=== PATIENT | male | born 1945 | race Caucasian/White ===

== ENCOUNTER 2022-02-16 08:16 | Inpatient (IN) ==
[~2022-02-16 08:16] MED LIST: LR 15ML/HR IV SCH
[2022-02-16] MEDS ORDERED: SODIUM CHLORIDE 0.9% 500 ML IV STA (08:29)
[2022-02-16] MEDS ORDERED: ONDANSETRON INJ 2 MG/ML 2 ML VIAL IV STA (08:29)
[2022-02-16] MEDS ORDERED: KETOROLAC TROMETHAMINE 15 MG/ML VIAL IV STA (08:29)
[2022-02-16] MEDS ORDERED: MoRPHine SULFATE 4 MG/ML 1 ML CARP\\VIAL IV PRN ×2 (08:29→14:46)
[2022-02-16 08:41] LABS: Basophils # (auto) 0.08 K/uL (0-0.2); Basophils % (auto) 0.7 %; Eosinophils # (auto) 0.21 K/uL (0-0.50); Eosinophils % (auto) 1.9 %; Hematocrit (blood only) 42.6 % (40.1-51.0); Immature Granulocytes # (auto) 0.03 K/uL (0.00-0.02); Immature Granulocytes % (auto) 0.3 %; Lymphocytes # (auto) 0.94 K/uL (1.2-3.4); Lymphocytes % (auto) 8.5 %; Mean Corpuscular Hemoglobin 29.6 pg (25.0-34.0); Mean Corpuscular Hgb Conc 32.9 g/dL (32.0-36.0); Mean Corpuscular Volume 90.1 fL (80.0-100.0); Mean Platelet Volume 10.2 fL (9.4-12.4); Monocytes # (auto) 1.23 K/uL (0.24-0.82); Monocytes % (auto) 11.1 %; Neutrophils # (auto) 8.58 K/uL (1.4-6.5); Neutrophils % (auto) 77.5 %; Platelet Count 213 K/uL (130-400); Red Blood Count 4.73 M/uL (4.63-6.08); White Blood Count 11.07 K/ul (4.8-10.8)
--- NOTE | 2022-02-16 08:42 | Emergency Department Note ---
Impression & Plan Acute left flank pain, Hydronephrosis, Renal colic, Failure of outpatient treatment ED Provider Note NAME: JAYCOB MORE AGE: 76 SEX: M : 1945 ARRIVES VIA: Walk-In INFORMANT: [Patient] ED PROVIDER(S): [Tristin Charles MD] CHIEF COMPLAINT: Flank pain HISTORY OF PRESENT ILLNESS: The patient is a 76-year-old male who presents to the ER with 8/10 left flank pain. The pain does not radiate and is constant. No fever, no vomiting. The patient was here yesterday and diagnosed with a 1.7 cm stone in the proximal left ureter. Hydronephrosis was present. He was offered hospitalization but chose to go home. The patient has been using oxycodone as prescribed, it is not controlling his pain. He is here for reevaluation and hopefully urologic intervention. The patient has not noticed any urinary burning or urgency. There has been no frequency. He has not had cough or congestion. He believes this is his first kidney stone. REVIEW OF SYSTEMS: See HPI for pertinent positives and negatives. A total of ten systems were reviewed and were otherwise negative. PMHx/PSHx: See Below SOCIAL HISTORY: See Below. PHYSICAL EXAM: GENERAL: Patient is in no acute distress. HEENT: No acute trauma, normocephalic atraumatic, mucous membranes moist, no nasal congestion, no scleral icterus. NECK: No stridor, no adenopathy, no meningismus, trachea is midline. LUNGS: Clear to auscultation bilaterally, no wheeze, no rhonchi, breath sounds equal. HEART: 2/6 systolic murmur, regular rate and rhythm. ABDOMEN: Soft, nontender, bowel sounds positive, no peritonitis. EXTREMITIES: No cyanosis or edema, full range of motion of all the joints withou t pain or difficulty, no signs for acute trauma. NEUROLOGIC: Oriented x 3, no acute motor or sensory deficits, no focal weakness. SKIN: No rash, no jaundice, no diaphoresis. Back: No flank discomfort to percussion. DIFFERENTIAL DIAGNOSIS: Renal colic, UTI, appendicitis, diverticulitis, mesenteric ischemia, aortic pathology, infections, inflammatory bowel disease, PUD, biliary pathology, as well as other pathologies. EMERGENCY DEPARTMENT COURSE/PROCEDURES: MEDICAL DECISION MAKING: There is a mild leukocytosis, possibly consistent with infection or just his pain. There was a normal hemoglobin and platelet count. Creatinine was elevated at 1.81. No electrolyte abnormality in need of emergent correction. Urinalysis showed some blood, no obvious infection. COVID test returned negative. KUB today did not demonstrate any obvious stone. CT of the abdomen pelvis from yesterday showed a 1.7 cm left proximal ureteral stone with hydronephrosis. The patient presents with ongoing flank discomfort. He has a large stone in his left ureter. He was given IV saline, IV Zofran and IV morphine. He received small dose of IV Toradol. The patient has failed outpatient management. He has a very large stone and will likely require urologic intervention. I did speak with urology. I spoke with case management, the on-call hospitalist was consulted. Past Med/Surg History Medical History Bilateral renal cysts BPH (benign prostatic hyperplasia) GERD (gastroesophageal reflux disease) HLD (hyperlipidemia) HTN (hypertension) Nephrolithiasis Renal insufficiency Subdural hematoma Surgical History (Updated 02/16/22 @ 10:53 by Raymond Sidhu MD) No significant past surgical history Family History Other Family history non-contributory Social History Smoking Status: Never smoker Hx Alcohol Use: Yes Alcohol type: beer Hx Substance Use: No Preferred Language: Belizean Communication Ability: Effective Filenet Architect Required: No Beliefs That Will Affect Care: None Current Living Situation: Spouse Feels Safe at Home: Yes Allergies Allergies Allergy/AdvReac Type Severity Reaction Status Date / Time No Known Drug Allergies Allergy Unknown NONE Verified 10/31/15 10:12 Home Meds Home Medications Medication Instructions Recorded Confirmed Acetaminophen (Tylenol Arthritis 1,300 mg PO PRN Pain #0 caps 10/31/15 Ext Rel) Lisinopril (Zestril) 40 mg PO DAILY #0 tabs 10/31/15 02/16/22 Lovastatin (Mevacor) 20 mg PO DAILY #0 tabs 10/31/15 02/16/22 OMEPRAZOLE (PRILOSEC) 20 mg PO DAILY #0 caps 10/31/15 02/16/22 Previous Rx's Medication Instructions Recorded tamsulosin 0.4 mg capsule 0.4 mg PO DAILY #10 caps 02/15/22 Results & Data (ED) Vital Signs Vital Signs - 24 hr 02/16/22 08:21 02/16/22 08:52 02/16/22 09:00 Temperature 36.5 C Temperature Source Temporal Artery Scan Pulse Rate 84 76 Respiratory Rate 20 21 Respiratory Effort / Characteristics Non-Labored Spontaneous Respiratory Depth Normal Respiratory Pattern Regular Blood Pressure 167/82 H 163/94 H Blood Pressure Mean 110 117 Pulse Oximetry 97 Oxygen Delivery Method Room Air Sepsis Recent Fever Within 48 Hours No Sepsis New/Unexplained Change in Mental Status No Sepsis Action Taken by Nursing No Action Required 02/16/22 09:00 02/16/22 09:30 02/16/22 09:30 Temperature Temperature Source Pulse Rate 75 71 76 Respiratory Rate 19 21 22 Respiratory Effort / Characteristics Respiratory Depth Respiratory Pattern Blood Pressure 172/98 H Blood Pressure Mean 122 Pulse Oximetry 97 Oxygen Delivery Method Sepsis Recent Fever Within 48 Hours Sepsis New/Unexplained Change in Mental Status Sepsis Action Taken by [facility] Medications Current Medication List: was personally reviewed by me Laboratory Data Attestation: I reviewed the patient's lab results. Result diagrams: 02/16/22 08:30 02/16/22 08:30 Lab Results 02/16/22 02/16/22 02/16/22 Range/Units 08:30 08:30 08:30 WBC 11.07 H (4.8-10.8) K/ul RBC 4.73 (4.63-6.08) M/uL Hgb 14.0 (14.0-18.0) g/dl Hct 42.6 (40.1-51.0) % MCV 90.1 (80.0-100.0) fL MCH 29.6 (25.0-34.0) pg MCHC 32.9 (32.0-36.0) g/dL RDW Std Deviation 43.0 (36.4-46.3) fL RDW Coeff of Mela 13.0 (11.5-14.5) % Plt Count 213 (130-400) K/uL MPV 10.2 (9.4-12.4) fL Immature Gran % (Auto) 0.3 % Neut % (Auto) 77.5 % Lymph % (Auto) 8.5 % [place] % (Auto) 11.1 % Eos % (Auto) 1.9 % Baso % (Auto) 0.7 % Neut # (Auto) 8.58 H (1.4-6.5) K/uL Lymph # (Auto) 0.94 L (1.2-3.4) K/uL [place] # (Auto) 1.23 H (0.24-0.82) K/uL Eos # (Auto) 0.21 (0-0.50) K/uL Baso # (Auto) 0.08 (0-0.2) K/uL Immature Gran # (Auto) 0.03 H (0.00-0.02) K/uL Sodium 133 L (136-145) mmol/L Potassium 4.4 (3.5-5.1) mmol/L Chloride 100 (98-107) mmol/L Carbon Dioxide 27 (21-32) mmol/L Anion Gap 6 (3-11) BUN 22 (6-23) mg/dl Creatinine 1.81 H (0.6-1.4) mg/dl Est Cr Clr Drug Dosing 36.7 ml/min Est GFR ( Amer) 41.2 ml/min Est GFR (Non-Af Amer) 35.5 ml/min BUN/Creatinine Ratio 12.2 (10-20) Glucose 137 H (70-99(Fasting)) mg/dl Calcium 9.0 (8.5-10.1) mg/dl Magnesium 1.8 (1.7-2.4) mg/dl SARS-CoV-2, RNA, NAAT (NEGATIVE) 02/16/22 Range/Units 08:50 WBC (4.8-10.8) K/ul RBC (4.63-6.08) M/uL Hgb (14.0-18.0) g/dl Hct (40.1-51.0) % MCV (80.0-100.0) fL MCH (25.0-34.0) pg MCHC (32.0-36.0) g/dL RDW Std Deviation (36.4-46.3) fL RDW Coeff of Mela (11.5-14.5) % Plt Count (130-400) K/uL MPV (9.4-12.4) fL Immature Gran % (Auto) % Neut % (Auto) % Lymph % (Auto) % [place] % (Auto) % Eos % (Auto) % Baso % (Auto) % Neut # (Auto) (1.4-6.5) K/uL Lymph # (Auto) (1.2-3.4) K/uL [place] # (Auto) (0.24-0.82) K/uL Eos # (Auto) (0-0.50) K/uL Baso # (Auto) (0-0.2) K/uL Immature Gran # (Auto) (0.00-0.02) K/uL Sodium (136-145) mmol/L Potassium (3.5-5.1) mmol/L Chloride (98-107) mmol/L Carbon Dioxide (21-32) mmol/L Anion Gap (3-11) BUN (6-23) mg/dl Creatinine (0.6-1.4) mg/dl Est Cr Clr Drug Dosing ml/min Est GFR ( Amer) ml/min Est GFR (Non-Af Amer) ml/min BUN/Creatinine Ratio (10-20) Glucose (70-99(Fasting)) mg/dl Calcium (8.5-10.1) mg/dl Magnesium (1.7-2.4) mg/dl SARS-CoV-2, RNA, NAAT NEGATIVE (NEGATIVE) Administered Medications Folic Acid 1 mg/ Syringe 10 mls @ 5 mls/min IV QAM LIAM Stop: 03/18/22 13:59 Last Admin: 02/16/22 14:18 Dose: 5 mls/min Documented By: Thiamine HCl 100 mg/ Syringe 10 mls @ 2 mls/min IV QAM LAIM Stop: 03/18/22 13:44 Last Admin: 02/16/22 14:17 Dose: 2 mls/min Documented By: Sodium Chloride (Nss 1000ml) 1,000 mls @ 65 mls/hr IV .[id number] LIAM Stop: 02/17/22 21:46 Last Admin: 02/16/22 15:12 Dose: 65 mls/hr Documented By: Discontinued Medications Sodium Chloride (Nss) 500 mls @ 999 mls/hr IV .Q31M STA Stop: 02/16/22 08:59 Last Infusion: 02/16/22 09:14 Dose: 0 mls/hr Documented By: Admin: 02/16/22 08:43 Dose: 999 mls/hr Documented By: HS Cefazolin Sodium (Ancef 2000mg) 2,000 mg in 15 mls @ 3.75 mls/min IV PREOP ONE Stop: 02/16/22 11:03 Last Admin: 02/16/22 11:32 Dose: 3.75 mls/min Documented By: AAF Lactated Ringer's (Lr) 1,000 mls @ 15 mls/hr IV .Q24H LIAM Stop: 02/17/22 05:59 Last Admin: 02/16/22 14:26 Dose: Not Given Documented By: Ketorolac Tromethamine (Ketorolac Tromethamine 15 Mg/Ml Vial) 10 mg IV NOW STA Stop: 02/16/22 08:30 Last Admin: 02/16/22 08:43 Dose: 10 mg Documented By: HS Morphine Sulfate (Morphine Sulfate 4 Mg/Ml 1 Ml Carp\Vial) 4 mg IV Q15M PRN PRN Reason: Pain Stop: 03/02/22 08:28 Last Admin: 02/16/22 08:43 Dose: 4 mg Documented By: HS Ondansetron HCl (Ondansetron Inj 2 Mg/Ml 2 Ml Vial) 4 mg IV NOW STA Stop: 02/16/22 08:30 Last Admin: 02/16/22 08:43 Dose: 4 mg Documented By: Imaging Data Radiologist's Impression: KUB X-Ray 02/16/22 08:29 KUB CLINICAL HISTORY: stone on ct yesterday COMPARISON STUDY: CT of the abdomen and pelvis February 15, 2022. FINDINGS: Right hip arthroplasty is incidentally noted. Bowel gas pattern is normal. Proximal left ureteral calculus on CT of February 15, 2022 is not definitively identified on this exam. IMPRESSION: Proximal left ureteral calculus on CT of February 15, 2022 not definitively identified on this exam. This is likely radiographically occult. ACT 112: Negative or not required by law. Electronically signed by: Tony Reyes M.D. 02/16/2022 9:30 AM Discharge Plan Visit Data Chief Complaint: Flank Pain Stated Complaint: PAIN IN KIDNEY ED Provider: Tristin Charles Discharge Problem: Acute left flank pain, Hydronephrosis, Renal colic, Failure of outpatient treatment Patient Disposition: Admitted As Inpatient Condition: Good Discharge Instructions Interventions: ED Discharge Assessment Last Done: 02/16/22 11:01
[2022-02-16 09:15] LABS: BUN Creatinine Ratio 12.2 (10-20); Creatinine Clr Calc Pharmacy 36.7 ml/min; Est GFR (African American) 41.2 ml/min; Est GFR (Non-African American) 35.5 ml/min
[2022-02-16 09:21] LABS: Potassium 4.4 mmol/L (3.5-5.1)
--- NOTE | 2022-02-16 09:24 | History & Physical Report ---
Date of Service February 16, 2022 Assessment & Plan (1) Hydronephrosis due to obstruction of ureter: (2) Acute left flank pain: (3) HTN (hypertension): (4) HLD (hyperlipidemia): (5) GERD (gastroesophageal reflux disease): (6) BPH (benign prostatic hyperplasia): Plan Mr. Nguyễn is a 76 year old male who presented to the [facility] with left flank pain that has been occurring over the past week. He had been to the ED last evening with similar symptoms where an abdominal and pelvic CT was performed revealing a 1.7 cm obstructing calculus in the left proximal ureter, causing moderate to severe left-sided hydronephrosis. Failed conservative management. Pain management, IVF, Urology consult. Obstructing renal calculus with hydronephrosis: -02/15/22: Abdominal/Pelvic CT: 1.7 cm obstructing calculus in the left proximal ureter with hydronephrosis. -Slight leukocytosis; 11.07. Afebrile. -Pain management with IV Morphine and Ketorolac -IV Fluids, Hgb 14.0 -Conservative management failed, was taking PO Oxycodone; unlikely to pass spontaneously -Urology Consult for possible ESWL/surgical intervention. Discussed with Ashlee PEGUERO -KUB done; Proximal left ureteral calculus on CT of February 15, 2022 not definitively identified on this exam. Alcohol Use: Consumes 4-6 beers daily. Last drink 48 hours ago AWSS scale ordered with IV Vitamin replacement Ativan PRN per protocol Mg+ level pending; goal of 2.0 HTN: -Hypertensive in ED; trend BP. -Hold Lisinopril due to renal insufficiency -Creatinine 1.81 -Hydralazine and Labatolol PRN with hold parameters. HLD: -Stable; Continue Lovastatin post op GERD: -Stable; continue Omeprazole post op BPH: -Stable: Continue Tamsulosin -PSA 0.61 from 2011 -Follows with Urology OPT Disposition: -PCP: Dr. Meade -VTE Prophylaxis: SCDs -Code Status: Full Code -Plan to return home at [place] History of Present Illness Chief Complaint: left flank pain Primary Care Provider: Steve Meade MD Mr. Nguyễn is a 76 year old male who presented to the [facility] with left flank pain that has been occurring over the past week. He had been to the ED last evening with similar symptoms where an abdominal and pelvic CT was performed revealing a 1.7 cm obstructing calculus in the left proximal ureter, causing moderate to severe left-sided hydronephrosis. 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 (She is currently inpatient at [facility], but scheduled for DC today). As mentioned, he has since returned to the ED this AM with similar symptoms. The patient has seen Dr. Garcia with Urology and his last appointment was January 25. He has a history of complex cysts on his left kidney for which they had planned for further follow up and diagnostic testing. He started to develop pain after that appointment. The patient denies LANIER, dizziness, fevers, chills, cough, CP, palpitations, N/V/D, hematuria or dysuria. Per discussion, this is his first kidney stone. Some slight leukocytosis noted this AM 11.07. Patient reports consuming 4-6 beers daily, with his last drink 48 hours ago. Additional PMH includes: HTN, HLD, GERD, and BPH. Patient will be admitted under the Hospitalist service for medical management and Urology consultation for likely surgical intervention. Allergies Allergy/AdvReac Type Severity Reaction Status Date / Time No Known Drug Allergies Allergy Unknown NONE Verified 10/31/15 10:12 Home Medications Medication Instructions Recorded Confirmed Type Acetaminophen (Tylenol Arthritis 1,300 mg PO PRN Pain #0 caps 10/31/15 History Ext Rel) Lisinopril (Zestril) 40 mg PO DAILY #0 tabs 10/31/15 02/16/22 History Lovastatin (Mevacor) 20 mg PO DAILY #0 tabs 10/31/15 02/16/22 History OMEPRAZOLE (PRILOSEC) 20 mg PO DAILY #0 caps 10/31/15 02/16/22 History tamsulosin 0.4 mg capsule 0.4 mg PO DAILY #10 caps 02/15/22 02/16/22 Rx Past Med/Surg History Medical History (Updated 02/16/22 @ 10:53 by Raymond Sidhu MD) Bilateral renal cysts BPH (benign prostatic hyperplasia) GERD (gastroesophageal reflux disease) HLD (hyperlipidemia) HTN (hypertension) Nephrolithiasis Renal insufficiency Subdural hematoma Surgical History (Updated 02/16/22 @ 10:53 by Raymond Sidhu MD) No significant past surgical history Family History Other Family history non-contributory Social History Smoking Status: Never smoker Hx Alcohol Use: Yes Alcohol type: beer Hx Substance Use: No Preferred Language: Italian Communication Ability: Effective Shop Hand Required: No Beliefs That Will Affect Care: None Current Living Situation: Spouse Other Information That Helps Us Care for You: No Feels Safe at Home: Yes Safety Concerns: Feels Safe At This Time Review of Systems Review of Systems: Neuro: (-) Falls, trauma, slurred speech HEENT: (-) LANIER, dizziness, dysphagia, visual or auditory changes CV: (-) CP, palpitations, swelling Resp: (-) SOB GI: (-) appetite changes, N/V/D, bowel changes : (-) urinary changes Skin: (-) rashes Psych: (-) anxiety, depression Physical Exam Physical Exam: Neuro: AAOx4, PERRLA, no aphagia, memory changes, CNII-XII grossly intact HEENT: head normocephalic, moist mucus membranes CV: S1/S2, (+) grade IV/ systolic Murmur sternal border (-) G/R, (-) edema, cap refill < 3 seconds Resp: Lungs CTA in all valdez. On RA GI: Abdomen S/NT/ND, Ax4 bowel sounds, (+) left CVA tenderness Musculoskeletal: 5/5 B/L UE strength, 5/5 B/L LE strength. No gait disturbance Skin: (-) rashes , (-) erythema. Psych: euthymic mood Results & Data Results & Data ([facility]) Vital Signs (Past 12 Hours) Vital Signs Temp Pulse Resp BP Pulse Ox O2 Del Method 02/16/22 08:21 36.5 C 84 20 167/82 H 97 Room Air Laboratory Results Short CBC 02/16/22 Range/Units 08:30 WBC 11.07 H (4.8-10.8) K/ul Hgb 14.0 (14.0-18.0) g/dl Hct 42.6 (40.1-51.0) % Plt Count 213 (130-400) K/uL BMP 02/16/22 08:30 Sodium 133 L Potassium 4.4 Chloride 100 Carbon Dioxide 27 BUN 22 Creatinine 1.81 H Glucose 137 H Calcium 9.0 Diagnostic Findings KUB X-Ray 02/16/22 08:29 KUB CLINICAL HISTORY: stone on ct yesterday COMPARISON STUDY: CT of the abdomen and pelvis February 15, 2022. FINDINGS: Right hip arthroplasty is incidentally noted. Bowel gas pattern is normal. Proximal left ureteral calculus on CT of February 15, 2022 is not definitively identified on this exam. IMPRESSION: Proximal left ureteral calculus on CT of February 15, 2022 not definitively identified on this exam. This is likely radiographically occult. ACT 112: Negative or not required by law. Electronically signed by: Tony Reyes M.D. 02/16/2022 9:30 AM Code Status & VTE Plan Code Status Full Code in the event of Cardiac or respiratory arrest VTE Prophylaxis Plan VTE Prophylaxis will be ordered: Yes Supervising Physician Co-Signing Physician Notes 76 yo M w/ PMH of BPH, GERD, HLD, HTN, CKD IIIa presented 02/16 to the ED due to ongoing left flank pain, 01/17, non radiating, constant. Pt presented 02/15 to ED and was found to have 1.7 cm obstructing left proximal ureter stone w/ mild to mod hydronephrosis and was offered admission which patient declined. Pt's renal function is also elevated at presentation (Cr 1.8, baseline around 1.3-1.4) likely postobstructive. Urinary symptoms: patient denies pain or burning while passing urine. h/o subdural hematoma, 7-8 years ago per pt, likely traumatic per patient but he is not sure. DEVIKA/CKD IIIa: hold nephrotoxics, no NSAIDs, IVF. Lt Renal stone and hydronephrosis: IVF, tamsulosin, Uro onboard, NPO unti uro eval, likely Sx today, d/w uro, pre op cefazolin. Pain Mx mostly w/ opiates and tylenol for now. Other chronic conditions: resume home meds, hold lisinopril. HTN urgency: prn meds for now, likely secondary to pain and acute condition. Pt drinks 4 beers a day almost daily, last drink 2 days ago per patient, awss protocol, iv vitamins, watch out for withdrawal. Pt quit smoking almost 45 years ago. Leucocytosis: minimal, likely d/t acute stress, will get procal --> negative Upon Exam: GENERAL: Alert and oriented x3. NAD, on RA. HEENT: No pallor, no icterus. Pupils equal, round and reactive to light. Oral mucosa moist. NECK: No JVD, no neck masses. HEART: S1 and S2 heard. Regular rate and rhythm. + murmur at aortic and pulmonic area, no gallop. RESPIRATORY SYSTEM: Normal AP diameter. No accessory muscle use. No wheezing, no crackles. ABDOMEN: Soft, bowel sounds present, nontender, no distention. CENTRAL NERVOUS SYSTEM: No facial droop. Speech is clear. Obeys simple commands. Moves extremities. EXTREMITIES: No edema, no erythema seen. NO CVA tenderness I have seen and examined the patient and have discussed the case with the provider above. I agree with the assessment and plan as stated.
--- NOTE | 2022-02-16 09:33 | XRay Report ---
KUB CLINICAL HISTORY: stone on ct yesterday COMPARISON STUDY: CT of the abdomen and pelvis February 15, 2022. FINDINGS: Right hip arthroplasty is incidentally noted. Bowel gas pattern is normal. Proximal left ur eteral calculus on CT of February 15, 2022 is not definitively identified on this exam. IMPRESSION: Proximal left ureteral calculus on CT of February 15, 2022 not definitively identified o n this exam. This is likely radiographically occult. ACT 112: Negative or not required by law. Electronically signed by: Tony Reyes M.D. 02/16/2022 9:30 AM
--- NOTE | 2022-02-16 10:23 | Urology Consultation ---
Date of Consultation February 16, 2022 Assessment & Plan (1) Ureterolithiasis: (2) Hydronephrosis due to obstruction of ureter: (3) Acute left flank pain: Plan 76yo M who returned to the ED today with intractable left flank pain secondary to a 1.7 cm obstructing calculus in the left proximal ureter causing moderate- severe left hydronephrosis. - Afebrile, non-toxic appearing. - Labs reviewed- Mild leukocytosis, creatinine 1.81. - Urinalysis from 02/15 not suspicious for infection. - Discussed acute stone management with cystoscopy and stent placement. Ureteral stents were discussed as well as postoperative issues and pain management. Also discussed that he will need a second procedure for stone treatment in the future. Risks/benefits discussed. Patient is agreeable to proceeding with stent placement today. - Given his intractable left flank pain and DEVIKA in the setting of an obstructing 1.7 cm calculus in the left proximal ureter, will proceed to the OR today for cystoscopy, left ureteral stent placement. - Risks and benefits reviewed with patient by Dr. Dodd. OR notified. Covid negative. Will cover with IV antibiotics preoperatively. - Keep NPO. Continue supportive care and pain management. - Urology will follow. Supervising Physician Co-Signing Physician Notes Agree with above, plan for cystoscopy left ureteral stent placement now History of Present Illness Reason for Consultation: Ureteral stone; Renal colic History of Present Illness This is a 76-year-old male who returned to the ED today with intractable left flank pain. Patient had been to the ED 1 day ago with similar symptoms and diagnosed with a 1.7 cm obstructing left proximal ureteral stone causing moderate to severe left-sided hydronephrosis. He was offered admission yesterday but preferred to go home as he is the primary caregiver for his . He was taking oxycodone as prescribed, however this was not controlling his pain which prompted his return to the ED today. On arrival he was afebrile, BP elevated. Mild leukocytosis of 11.07 (10.95 yesterday), Creatinine 1.81 (1.76 yesterday). KUB today did not definitively identify the stone. Urinalysis from 02/15 with trace LE, 510 WBC, negative bacteria, negative nitrite, negative blood. Patient was admitted to medicine for pain management. Urology consulted for ureteral stone, renal colic. CT abdomen pelvis 02/15- 1. There is a 1.7 cm obstructing calculus in the left proximal ureter. This causes moderate to severe left hydronephrosis. 2. No additional calculi are seen in either kidney. 3. Numerous renal cysts are seen bilaterally. There are 2 mildly complex left renal cysts as above which measure up to 8.5 cm an contain thin calcified septations. These are of low suspicion, likely representing Bosniak 2F lesions. Nonemergent follow-up with urology is recommended, as is a nonemergent contrast- enhanced renal protocol CT or MRI for further evaluation. 4. Advanced colonic diverticulosis without CT evidence of acute diverticulitis. 5. Hepatic steatosis. 6. Cardiomegaly. Patient examined at bedside in the ED. Awake, resting in bed on arrival. No acute distress. Pain has improved with IV pain medication. No fevers or chills. No nausea or vomiting. Voiding without issue. Denies hematuria and dysuria. Has been NPO. Denies prior history of stones. He does follow with Dr. Garcia of [facility] urology and his last appointment was January 25. He has a history of complex cysts on his left kidney for which they had planned for further follow up and diagnostic testing. He reports having a CT scan at [facility] approximately 1 week ago. Family history noncontributory. Allergies Allergy/AdvReac Type Severity Reaction Status Date / Time No Known Drug Allergies Allergy Unknown NONE Verified 10/31/15 10:12 Home Medications Medication Instructions Recorded Confirmed Type Acetaminophen (Tylenol Arthritis 1,300 mg PO PRN Pain #0 caps 10/31/15 History Ext Rel) Lisinopril (Zestril) 40 mg PO DAILY #0 tabs 10/31/15 02/16/22 History Lovastatin (Mevacor) 20 mg PO DAILY #0 tabs 10/31/15 02/16/22 History OMEPRAZOLE (PRILOSEC) 20 mg PO DAILY #0 caps 10/31/15 02/16/22 History tamsulosin 0.4 mg capsule 0.4 mg PO DAILY #10 caps 02/15/22 02/16/22 Rx Patient History Medical History (Updated 02/16/22 @ 10:53 by Raymond Sidhu MD) Bilateral renal cysts BPH (benign prostatic hyperplasia) GERD (gastroesophageal reflux disease) HLD (hyperlipidemia) HTN (hypertension) Nephrolithiasis Renal insufficiency Subdural hematoma Surgical History (Updated 02/16/22 @ 10:53 by Raymond Sidhu MD) No significant past surgical history Family History Other Family history non-contributory Social History Smoking Status: Former smoker Current Living Situation: Spouse Feels Safe at Home: Yes Review of Systems Review of Systems: All systems reviewed & are unremarkable except as noted in HPI & below Physical Exam Constitutional: well developed and well nourished; no acute distress Neck: normal visual inspection Respiratory: normal respiratory effort; no respiratory distress and no labored breathing Gastrointestinal (Abdomen): Inspection/Auscultation: abdomen normal to inspection Percussion/Palpation: abdomen soft; abdomen nontender Musculoskeletal: Head/Neck/Chest: normocephalic Skin: No visible rashes or lesions to exposed skin areas Neurologic: moves all extremities and awake Psychiatric: Orientation: alert, oriented x 3 and cooperative Results & Data (MN) Vital Signs (Past 12 Hours) Vital Signs Temp Pulse Resp BP Pulse Ox O2 Del Method 02/16/22 10:00 72 23 02/16/22 09:30 76 22 172/98 H 97 02/16/22 09:30 71 21 02/16/22 09:00 75 19 02/16/22 09:00 163/94 H 02/16/22 08:52 76 21 02/16/22 08:21 36.5 C 84 20 167/82 H 97 Room Air PG Care Time/CCT Total # of Minutes Spent Total Time Spent with Patient: Total time spent is greater than 50% in coordination of care (as documented) at patient's floor/unit and/or counseling patient: Coding Level of Care Code 40680 Initial Inpt Care Lvl 2 Diagnoses Ureterolithiasis N20.1 Hydronephrosis due to obstruction of ureter N13.1 Acute left flank pain R10.9
[2022-02-16] MEDS ORDERED: fentaNYL citrate 100 MCG/2 ML VIAL ONE (10:34)
[2022-02-16] MEDS ORDERED: PROPOFOL IV EMULSION 10 MG/ML 20 ML VIAL IV ONE (10:34)
[2022-02-16] MEDS ORDERED: ONDANSETRON INJ 2 MG/ML 2 ML VIAL ONE (10:34)
[2022-02-16] MEDS ORDERED: LIDOCAINE 2% MPF LOCAL 5 ML VIAL INFIL ONE (10:34)
[2022-02-16] MEDS ORDERED: hydrALAZINE HCL 20 MG/ML VIAL IV PRN ×2 (10:45→13:22)
--- NOTE | 2022-02-16 10:50 | Anesthesiology Consultation ---
Date of Service February 16, 2022 Assessment & Plan (1) Encounter for pre-operative examination: Chart Review Chart Review: Acceptable Risk for Surgery History Surgery Operation Date: 02/16/22 10:10 Proposed Procedures p Cystoscopy Left Stent Insertion - Jaya Dodd MD Height/Weight Height: 5 ft 7 in Weight: 87.9 kg Allergies Allergy/AdvReac Type Severity Reaction Status Date / Time No Known Drug Allergies Allergy Unknown NONE Verified 10/31/15 10:12 Medications Home Medications Medication Instructions Recorded Confirmed Last Taken Acetaminophen (Tylenol Arthritis 1,300 mg PO PRN Pain #0 caps 10/31/15 Unknown Ext Rel) Lisinopril (Zestril) 40 mg PO DAILY #0 tabs 10/31/15 02/16/22 Unknown Lovastatin (Mevacor) 20 mg PO DAILY #0 tabs 10/31/15 02/16/22 Unknown OMEPRAZOLE (PRILOSEC) 20 mg PO DAILY #0 caps 10/31/15 02/16/22 Unknown tamsulosin 0.4 mg capsule 0.4 mg PO DAILY #10 caps 02/15/22 02/16/22 Unknown Active Medications Generic Name Dose Route Start Last Admin Trade Name Freq PRN Reason Stop Dose Admin Morphine Sulfate 4 mg 02/16/22 08:29 02/16/22 08:43 Morphine Sulfate 4 Mg/Ml 1 Ml Carp\Vial IV 03/02/22 08:28 4 mg Q15M PRN Administration Pain Past Medical History Medical History (Updated 02/16/22 @ 10:53 by Raymond Sidhu MD) Bilateral renal cysts BPH (benign prostatic hyperplasia) GERD (gastroesophageal reflux disease) HLD (hyperlipidemia) HTN (hypertension) Nephrolithiasis Renal insufficiency Subdural hematoma Past Family History Family History Other Family history non-contributory Past Surgical History Surgical History (Updated 02/16/22 @ 10:53 by Raymond Sidhu MD) No significant past surgical history Social History Smoking Status: Former smoker Physical Exam Vital Signs Last Vital Signs Temp 36.5 C 02/16/22 08:21 Pulse 72 02/16/22 10:00 Resp 23 02/16/22 10:00 BP 172/98 H 02/16/22 09:30 Pulse Ox 97 02/16/22 09:30 O2 Del Method 02/16/22 08:21 Testing Laboratory Results 02/16/22 08:30 02/16/22 08:30
[2022-02-16] MEDS ORDERED: ceFAZolin 2000MG 2,000 MG/15 ML SYR IV ONE (11:00)
[2022-02-16 11:18] LABS: Appearance Urine Clear (Clear); Bacteria Urine Automated Negative (Negative); Bilirubin Urine Negative (Negative); Blood Urine Trace (Negative); Cast Urine Automated 0 /lpf (0-5); Color Urine Dark Yellow; Glucose Urine UA Negative (Negative); Ketones Urine 1+ (Negative); Leukocyte Esterase Urine Trace (Negative); Nitrite Urine Negative (Negative); Protein Urine Trace (Negative); Specific Gravity Urine 1.021 (1.000-1.030); Urobilinogen Urine Negative (Negative); pH Urine 5.5 (4.5-7.5)
[2022-02-16] MEDS ORDERED: ATROPINE SULFATE 0.1 MG/ML 10ML SYR IV PRN (11:18)
[2022-02-16] MEDS ORDERED: ONDANSETRON INJ 2 MG/ML 2 ML VIAL IV PRN (11:18)
[2022-02-16] MEDS ORDERED: LABETALOL HCL IV 5 MG/ML 20ML IV PRN (11:18)
[2022-02-16] MEDS ORDERED: Nursing to Pharmacy Communication SCH (11:30)
--- NOTE | 2022-02-16 11:57 | Operative Report ---
PG Post Operative Report Pre & Post Diagnosis Operation Date: 02/16/22 10:10 Pre-Op Diagnosis: Ureterolithiasis Post-Op Diagnosis: Ureterolithiasis I identified the patient and participated in the time-out.: Yes Procedure Operation Date: 02/16/22 10:10 Actual Procedures p Cystoscopy Left Stent Insertion(Left) - Jaya Dodd MD Surgeon Jaya Dodd MD Reel System Operator none Estimated Blood Loss 0 Findings Consistent with Post-Op Diagnosis Specimens none Description of Procedure The patient was identified in the preoperative holding area, appropriate informed consents were reviewed and completed and the patient was transferred to the operative suite. Upon arrival, appropriate antibiotics and anesthesia were administered and the patient was placed in dorsal lithotomy position and prepped and draped in sterile fashion. 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 He does have a moderately enlarged prostate but I was able to advance the scope beyond it. Inspection of the bladder was unremarkable. The left UO was cannulated with a sensor wire and subsequently a 6 Bangl[place]hi by 26 cm double-J stent. There is good curl in the kidney as well as the bladder. There is good drainage through the stent and around it. I concluded the case and he was reversed of anesthesia and taken to the recovery room in stable condition. There were no complications. I attest to the content of the Intraoperative Record and any orders documented therein. Any exceptions are noted below.
--- NOTE | 2022-02-16 12:59 | Fluoroscopy Report ---
INTRAOPERATIVE RADIOGRAPHS CLINICAL HISTORY: Left ureteral stent placement. Fluoroscopy time: 3 seconds. FINDINGS: 3 spot fluoroscopic views of the left upper quadrant are correlated with abdominal CT dated 02/15/2022. On the initial 2 images a wire projects over the left renal pelvis. The final image shows the proximal end of a left ureteral stent in appropriate position. IMPRESSION: Intraoperative images from a left ureteral stent placement procedure as above. Electronically signed by: Tristin Molina M.D. 02/16/2022 12:58 PM
--- NOTE | 2022-02-16 13:16 | Anesthesiology Progress Note ---
Date of Service February 16, 2022 Anesthesia Post Procedure Vital Signs Vital Signs: Temp Pulse Pulse Pulse Resp BP BP 02/16/22 12:55 61 20 125/66 02/16/22 12:40 62 16 117/69 02/16/22 12:25 65 16 135/83 02/16/22 12:15 36.4 C L 63 20 133/75 02/16/22 12:05 69 15 133/80 02/16/22 11:55 36.0 C L 73 12 142/84 H 02/16/22 11:14 36.7 C 69 20 137/84 02/16/22 10:30 187/90 H 02/16/22 10:30 74 25 H 02/16/22 11:01 02/16/22 10:00 72 23 02/16/22 09:30 76 22 172/98 H 02/16/22 09:30 71 21 02/16/22 09:00 75 19 02/16/22 09:00 163/94 H 02/16/22 08:52 76 21 02/16/22 08:21 36.5 C 84 20 167/82 H Pulse Ox O2 Del Method O2 Flow Rate 02/16/22 12:55 96 Nasal Cannula 2 02/16/22 12:40 97 Nasal Cannula 2 02/16/22 12:25 97 Nasal Cannula 2 02/16/22 12:15 97 Nasal Cannula 2 02/16/22 12:05 95 Room Air 02/16/22 11:55 95 Oxymask 5 02/16/22 11:14 93 Room Air 02/16/22 10:30 97 02/16/22 10:30 02/16/22 11:01 Room Air 02/16/22 10:00 02/16/22 09:30 97 02/16/22 09:30 02/16/22 09:00 02/16/22 09:00 02/16/22 08:52 02/16/22 08:21 97 Room Air Pain Intensity Left Flank: Pain Intensity: 3 Transfer of Care Handoff Completed per policy Notes Mental Status: alert / awake / arousable and participated in evaluation Patient Amnestic to Procedure: Yes Nausea / Vomiting: adequately controlled Pain: adequately controlled Airway Patency, RR, SpO2: stable & adequate BP & HR: stable & adequate Hydration State: stable & adequate Anesthetic Complications: no major complications apparent and Pt Satisfied with anesthetic care
[2022-02-16] MEDS ORDERED: LORazepam 1 MG in SYRINGE 0.5 ML IV PRN (13:22)
[2022-02-16] MEDS: THIAMINE HCL 100 MG in SYRINGE 9 ML IV SCH (14:17)
[2022-02-16] MEDS: FOLIC ACID 1 MG in SYRINGE 9.8 ML IV SCH (14:18)
[2022-02-16] MEDS ORDERED: ACETAMINOPHEN 325 MG TAB PO PRN (14:50)
[2022-02-16] MEDS: SODIUM CHLORIDE 0.9% 1000ML 1,000 ML IV SCH (15:12)
--- NOTE | 2022-02-16 17:14 | Electrocardiogram Report ---
Test Reason : Blood Pressure : / mmHG Vent. Rate : 070 BPM Atrial Rate : 070 BPM P-R Int : 186 ms QRS Dur : 134 ms QT Int : 442 ms P-R-T Axes : 025 -59 -28 degrees QTc Int : 477 ms Normal sinus rhythm Right bundle branch block Left anterior fascicular block Bifascicular block Abnormal ECG When compared with ECG of 31-OCT-2015 10:12, Right bundle branch block is now Present Criteria for Septal infarct are no longer Present T wave inversion now evident in Inferolateral leads Confirmed by Eric Nunez ([id number]) on 02/16/2022 5:13:46 PM Referred By: REFERRED SELF Confirmed By:Eric Nunez
[2022-02-17] MEDS: SODIUM CHLORIDE 0.9% 1000ML 1,000 ML IV SCH (06:02)
[2022-02-17 07:31] LABS: Hematocrit (blood only) 36.9 % (40.1-51.0); Hemoglobin 12.1 g/dl (14.0-18.0); Mean Corpuscular Hemoglobin 29.5 pg (25.0-34.0); Mean Corpuscular Hgb Conc 32.8 g/dL (32.0-36.0); Mean Platelet Volume 10.4 fL (9.4-12.4); Platelet Count 223 K/uL (130-400); RDW Coefficient of Variation 12.8 % (11.5-14.5); RDW Standard Deviation 42.5 fL (36.4-46.3)
[2022-02-17] MEDS: THIAMINE HCL 100 MG in SYRINGE 9 ML IV SCH (07:44)
[2022-02-17] MEDS: FOLIC ACID 1 MG in SYRINGE 9.8 ML IV SCH (07:44)
[2022-02-17 07:51] LABS: BUN Creatinine Ratio 13.3 (10-20); Calcium 8.2 mg/dl (8.5-10.1); Creatinine Clr Calc Pharmacy 46.3 ml/min; Est GFR (African American) 54.7 ml/min; Est GFR (Non-African American) 47.2 ml/min; Magnesium 1.7 mg/dl (1.7-2.4)
--- NOTE | 2022-02-17 13:27 | Discharge Summary ---
Date of Service February 17, 2022 Admission HPI Per Admitting Provider Mr. Nguyễn is a 76 year old male who presented to the [facility] with left flank pain that has been occurring over the past week. He had been to the ED last evening with similar symptoms where an abdominal and pelvic CT was performed revealing a 1.7 cm obstructing calculus in the left proximal ureter, causing moderate to severe left-sided hydronephrosis. 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 (She is currently inpatient at [facility], but scheduled for DC today). As mentioned, he has since returned to the ED this AM with similar symptoms. The patient has seen Dr. Garcia with Urology and his last appointment was January 25. He has a history of complex cysts on his left kidney for which they had planned for further follow up and diagnostic testing. He started to develop pain after that appointment. The patient denies LANIER, dizziness, fevers, chills, cough, CP, palpitations, N/V/D, hematuria or dysuria. Per discussion, this is his first kidney stone. Some slight leukocytosis noted this AM 11.07. Patient reports consuming 4-6 beers daily, with his last drink 48 hours ago. Additional PMH includes: HTN, HLD, GERD, and BPH. Patient will be admitted under the Hospitalist service for medical management and Urology consultation for likely surgical intervention. Admission Exam Per Admitting Provider Neuro: AAOx4, PERRLA, no aphagia, memory changes, CNII-XII grossly intact HEENT: head normocephalic, moist mucus membranes CV: S1/S2, (+) grade IV/ systolic Murmur sternal border (-) G/R, (-) edema, cap refill < 3 seconds Resp: Lungs CTA in all valdez. On RA GI: Abdomen S/NT/ND, Ax4 bowel sounds, (+) left CVA tenderness Musculoskeletal: 5/5 B/L UE strength, 5/5 B/L LE strength. No gait disturbance Skin: (-) rashes , (-) erythema. Psych: euthymic mood Principal Diagnosis (1) Ureterolithiasis: (2) Hydronephrosis due to obstruction of ureter: (3) Acute left flank pain: (4) Acute kidney injury Discharge Exam General- No acute distress Head- atraumatic Eyes- PERRL, EOMI, ENT- oropharynx clear Neck- supple, no JVD Lungs- clear to auscultation Heart- regular rhythm; +murmur Abdomen- normal bowel sounds, soft, nontender Extremities- no calf tenderness Neuro- alert, oriented x 3; PERRL, EOMI; no facial palsy; no dysarthria Skin- warm & dry Discharge Data Allergies Allergy/AdvReac Type Severity Reaction Status Date / Time No Known Drug Allergies Allergy Unknown NONE Verified 10/31/15 10:12 Consultations 02/16/22 09:36 ED Decision to Admit Stat Procedures Performed Operation Date: 02/16/22 10:10 Actual Procedures p Cystoscopy Left Stent Insertion(Left) - Jaya Dodd MD Ordered Studies 02/16/22 11:15 FL KUB Routine Laboratory Results WBC 7.80 K/ul (4.8-10.8) 02/17/22 07:08 RBC 4.10 M/uL (4.63-6.08) L 02/17/22 07:08 Hgb 12.1 g/dl (14.0-18.0) L 02/17/22 07:08 Hct 36.9 % (40.1-51.0) L 02/17/22 07:08 MCV 90.0 fL (80.0-100.0) 02/17/22 07:08 MCH 29.5 pg (25.0-34.0) 02/17/22 07:08 MCHC 32.8 g/dL (32.0-36.0) 02/17/22 07:08 RDW Std Deviation 42.5 fL (36.4-46.3) 02/17/22 07:08 RDW Coeff of Mela 12.8 % (11.5-14.5) 02/17/22 07:08 Plt Count 223 K/uL (130-400) 02/17/22 07:08 MPV 10.4 fL (9.4-12.4) 02/17/22 07:08 Immature Gran % (Auto) 0.3 % 02/16/22 08:30 Neut % (Auto) 77.5 % 02/16/22 08:30 Lymph % (Auto) 8.5 % 02/16/22 08:30 [place] % (Auto) 11.1 % 02/16/22 08:30 Eos % (Auto) 1.9 % 02/16/22 08:30 Baso % (Auto) 0.7 % 02/16/22 08:30 Neut # (Auto) 8.58 K/uL (1.4-6.5) H 02/16/22 08:30 Lymph # (Auto) 0.94 K/uL (1.2-3.4) L 02/16/22 08:30 [place] # (Auto) 1.23 K/uL (0.24-0.82) H 02/16/22 08:30 Eos # (Auto) 0.21 K/uL (0-0.50) 02/16/22 08:30 Baso # (Auto) 0.08 K/uL (0-0.2) 02/16/22 08:30 Immature Gran # (Auto) 0.03 K/uL (0.00-0.02) H 02/16/22 08:30 Sodium 136 mmol/L (136-145) 02/17/22 07:08 Potassium 4.0 mmol/L (3.5-5.1) 02/17/22 07:08 Chloride 105 mmol/L (98-107) 02/17/22 07:08 Carbon Dioxide 25 mmol/L (21-32) 02/17/22 07:08 Anion Gap 6 (3-11) 02/17/22 07:08 BUN 19 mg/dl (6-23) 02/17/22 07:08 Creatinine 1.43 mg/dl (0.6-1.4) H D 02/17/22 07:08 Est Cr Clr Drug Dosing 46.3 ml/min 02/17/22 07:08 Est GFR ( Amer) 54.7 ml/min 02/17/22 07:08 Est GFR (Non-Af Amer) 47.2 ml/min 02/17/22 07:08 BUN/Creatinine Ratio 13.3 (10-20) 02/17/22 07:08 Glucose 150 mg/dl (70-99(Fasting)) H 02/17/22 07:08 POC Glucose 83 mg/dl (70-99) 02/17/22 11:47 Calcium 8.2 mg/dl (8.5-10.1) L 02/17/22 07:08 Magnesium 1.7 mg/dl (1.7-2.4) 02/17/22 07:08 Procalcitonin 0.06 ng/ml (0-0.5) 02/16/22 10:22 Urine Color Dark Yellow 02/16/22 Unknown Urine Appearance Clear (Clear) 02/16/22 Unknown Urine pH 5.5 (4.5-7.5) 02/16/22 Unknown Ur Specific [place] 1.021 (1.000-1.030) 02/16/22 Unknown Urine Protein Trace (Negative) H 02/16/22 Unknown Urine Glucose (UA) Negative (Negative) 02/16/22 Unknown Urine Ketones 1+ (Negative) H 02/16/22 Unknown Urine Blood Trace (Negative) H 02/16/22 Unknown Urine Nitrite Negative (Negative) 02/16/22 Unknown Urine Bilirubin Negative (Negative) 02/16/22 Unknown Urine Urobilinogen Negative (Negative) 02/16/22 Unknown Ur Leukocyte Esterase Trace (Negative) H 02/16/22 Unknown Urine WBC (Auto) 1-5 /hpf (0-5) 02/16/22 Unknown Urine RBC (Auto) 5-10 /hpf (0-4) H 02/16/22 Unknown U Hyaline Cast (Auto) 0 /lpf (0-5) 02/16/22 Unknown U Epithel Cells (Auto) 10-20 /lpf (0-5) H 02/16/22 Unknown Urine Bacteria (Auto) Negative (Negative) 02/16/22 Unknown SARS-CoV-2, RNA, NAAT NEGATIVE (NEGATIVE) 02/16/22 08:50 Impressions KUB X-Ray 02/16/22 08:29 KUB CLINICAL HISTORY: stone on ct yesterday COMPARISON STUDY: CT of the abdomen and pelvis February 15, 2022. FINDINGS: Right hip arthroplasty is incidentally noted. Bowel gas pattern is normal. Proximal left ureteral calculus on CT of February 15, 2022 is not definitively identified on this exam. IMPRESSION: Proximal left ureteral calculus on CT of February 15, 2022 not definitively identified on this exam. This is likely radiographically occult. ACT 112: Negative or not required by law. Electronically signed by: Tony Reyes M.D. 02/16/2022 9:30 AM Abdomen Fluoroscopy 02/16/22 11:15 INTRAOPERATIVE RADIOGRAPHS CLINICAL HISTORY: Left ureteral stent placement. Fluoroscopy time: 3 seconds. FINDINGS: 3 spot fluoroscopic views of the left upper quadrant are correlated with abdominal CT dated 02/15/2022. On the initial 2 images a wire projects over the left renal pelvis. The final image shows the proximal end of a left ureteral stent in appropriate position. IMPRESSION: Intraoperative images from a left ureteral stent placement procedure as above. Electronically signed by: Tristin Molina M.D. 02/16/2022 12:58 PM Hospital Course (1) Hydronephrosis due to obstruction of ureter: (2) Acute left flank pain: (3) HTN (hypertension): (4) HLD (hyperlipidemia): (5) GERD (gastroesophageal reflux disease): (6) BPH (benign prostatic hyperplasia): Plan Mr. Nguyễn is a 76 year old male who presented to the [facility] with left flank pain that has been occurring over the past week. He had been to the ED last evening with similar symptoms where an abdominal and pelvic CT was performed revealing a 1.7 cm obstructing calculus in the left proximal ureter, causing moderate to severe left-sided hydronephrosis. Failed conservative management. Obstructing renal calculus with hydronephrosis: -02/15/22: Abdominal/Pelvic CT: 1.7 cm obstructing calculus in the left proximal ureter with hydronephrosis. - Creatinine on admission 1.8 - s/p Cystoscopy Left Stent Insertion(Left) - Jaya Dodd MD - No postop complication - Pain control - Continue Flomax on discharge - ok from urology standpoint to discharge - Follow up with urology Dr. Dodd for stent removal and stone management Alcohol Use: Consumes 4-6 beers daily. Last drink 48 hours ago AWSS scale ordered with IV Vitamin replacement Ativan PRN per protocol Counseling on alcohol cessation HTN: -Hypertensive in ED; trend BP. -Hold Lisinopril due to renal insufficiency -Hydralazine and Labatolol PRN with hold parameters. -Lisinopril resumed on discharge DEVIKA Mostly due to obstructing stone in the left proximal ureter with hydronephrosis. Creatinine 1.8 on admission ( baseline creatinine 1.4 ) Received IVF Creatinine improved to 1.4 today Lisinopril resumed Check BMP in 1 week HLD: -Stable; Continue Lovastatin post op GERD: -Stable; continue Omeprazole post op BPH: -Stable: Continue Tamsulosin -PSA 0.61 from 2012 -Follows with Urology OPT -Code Status: Full Code Disposition: Discharge home today Total Time Total Time Spent Total Time Spent (In Minutes): 35 minutes Discharge Plan Discharge Items Patient Disposition: Home - Self-Care Reason For Visit: FLANK Discharge Diagnosis: (1) Ureterolithiasis: (2) Hydronephrosis due to obstruction of ureter: (3) Acute left flank pain: (4) Acute kidney injury Condition on Discharge: Good Activity: Resume your previous activity Non-emergency contact: Primary Care Provider and Urologist Call non-emergency contact if: you have any medication questions and your temperature is above 101 Follow-up/Referrals: Steve Meade MD [Primary Care Provider] - Diet: Heart Healthy Addtl Attending Provider Instructions: Follow up with your primary care provider Dr. Chavarria within 1 week ( office will call you for the follow up) Follow up with urology Dr. Dodd for stent removal and stone management ( office will call you ) Check BMP in 1 week to monitor your Creatinine Seek medical attention if your reoccurs Pending Studies at Discharge: No Stand-Alone Forms: My [employer], Smoking Cessation Medications and DC Order Prescriptions: New phenazopyridine [Pyridium] 200 mg tablet 200 mg PO Q8H PRN (Reason: for bladder spasm or pain only) Qty: 10 0RF Continued Acetaminophen (Tylenol Arthritis Ext Rel) 650 MG CAPLET 1,300 mg PO PRN (Reason: Pain) Qty: 0 Lisinopril (Zestril) 40 MG tablet 40 mg PO DAILY Qty: 0 Lovastatin (Mevacor) 20 MG tablet 20 mg PO DAILY Qty: 0 OMEPRAZOLE (PRILOSEC) 20 MG CONTR REL CAP 20 mg PO DAILY Qty: 0 tamsulosin 0.4 mg capsule 0.4 mg PO DAILY Qty: 30 0RF Discharge Orders: Discharge Order (Routine); Ordered 02/17/22 Ordered By: Abrahan Cannon Admission Data Admit Date/Time: 02/16/22 09:31 Attending Provider: Abrahan Cannon Admit Provider: Scarlett Guzman Primary Care Provider: Steve Meade Other Providers: Scarlett Guzman Other Interventions: Discharge Summary Assessment (RN) Last Done: 02/17/22 13:29
== END 2022-02-17 13:49 | disposition home or self-care (01) | DRG 661 ==
LOC: ED 08:16 → PACUINP 09:31 → SUATTDRO 09:31 → 2W 11:01

== ENCOUNTER 2023-11-26 22:16 | Inpatient (IN) ==
[2023-11-26] MEDS: SODIUM CHLORIDE 0.9% 500 ML IV SCH (22:50)
--- NOTE | 2023-11-26 22:52 | Emergency Department Note ---
Impression & Plan Rectal bleeding ED Provider Note Provider: Gary Schultz MD DATE OF SERVICE: 11/26/2023 CHIEF COMPLAINT: Bloody and maroon stools HISTORY OF PRESENT ILLNESS: Patient is a 78-year-old gentleman on aspirin and Plavix currently for a TAVR procedure this spring presenting here stating this morning he had bright red blood in his stools several times before 9 AM. States did have a bowel move the rest of the day. No abdominal pain. No fevers. No chest pain or shortness of breath. Reports no rectal pain. Denies significant use of NSAIDs by his report or alcohol. Again no abdominal pain. No syncope. This evening around 8 PM had several more now dark red-maroon stools. States it feels similar to when he had a GI bleed from a gastric ulcer in the past. Did have scopes completed by his report in July without acute finding besides diverticulosis. Patient did require transfusion with a gastric bleed about 20 years ago. PAST MEDICAL HISTORY: As noted above MEDICATIONS: Reviewed home medications includes aspirin and Plavix as well as pantoprazole SOCIAL HISTORY: Denies alcohol use PHYSICAL EXAM: GENERAL: alert and oriented in no acute distress on stretcher Head: normocephalic and atraumatic EYES: No injection, discharge or icterus. NECK: Trachea midline. ENT: Mucous membranes pink and moist. LUNGS: Airway patent. No retractions. Breath sounds clear with good air entry bilaterally. HEART: Regular rate and rhythm. No chest wall tenderness ABDOMEN: Soft and non-tender, without guarding or rebound. No masses. SKIN: Acyanotic, warm, dry, without rashes EXTREMITIES: Without swelling, tenderness or deformity NEUROLOGICAL: No focal deficits. No aphasia. No facial droop or slurred speech. Ambulatory. 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 No PVC. No clear acute ST segment elevation with nonspecific anterior T wave inversions. QTc 483. CONTINUOUS CARDIAC MONITORING: was ordered and showed a heart rate of 70s-80s bpm in normal sinus rhythm Patient's laboratory studies and imaging reviewed. Differential includes Diverticulosis, AVM, coagulopathy, colitis, inflammatory bowel disease, malignancy, Serenity-Mai tear, esophagitis, peptic ulcer disease, variceal bleed, gastritis, epistaxis, fissure, hemorrhoids, as well as other pathologies. IMPRESSION/MEDICAL DECISION MAKING: Patient history of GI bleed in the past and gastric ulcer by report chronic transfusion. Appears hemodynamically stable currently. Is on aspirin Plavix did have a TAVR several months ago. No chest pain syncope shortness of breath or significant fever to report at this time. No significant abdominal pain or abdominal tenderness. Does report some blood this morning and then maroon blood multiple stools this evening. Basic blood counts ordered. Will obtain CT of the abdomen pelvis to look for any inflammatory conditions diverticulitis. Given an IV dose of pantoprazole here. Type and screen sent. Blood work here without significant leukocytosis. Normal platelet count. Hemoglobin 13.2. BUN not significantly elevated. No transaminitis. Seems likely to be more of a lower GI issue given the BUNs not elevated. Did have a large bloody bowel movement while here. Given his age and risk factors with the dual antiplatelets, do recommend we observe him for stability and further GI evaluation. He was in agreement. Hospitalist contacted. CT without evidence of diverticulitis free air or abscess. CT report shows some limited sigmoid colitis but no infectious symptoms we will defer antibiotics unless the hospitalist feel they are warranted. DIAGNOSIS: Rectal bleed DISPOSITION: Hospitalist will evaluate Patient was agreeable with this plan. Past Med/Surg History Problem List Rectal bleeding (Acute) Encounter for pre-operative examination Hypertension (Chronic) Dizziness (Acute) Right sided weakness (Acute) Subdural hematoma (Acute) No significant past surgical history Medical History Bilateral renal cysts BPH (benign prostatic hyperplasia) GERD (gastroesophageal reflux disease) History of bleeding ulcers 15 yrs ago History of kidney stones HLD (hyperlipidemia) HTN (hypertension) Nephrolithiasis Renal insufficiency Subdural hematoma 2016 > unknown cause, [facility] [place], drained, no further issues Surgical History History of colonoscopy History of cystoscopy with stent History of esophagogastroduodenoscopy (EGD) History of tonsillectomy History of total hip arthroplasty right History of total knee replacement bilat Hx of removal of cyst "from brain" benign, removed approx 2 yrs ago Family History Mother Diabetes Brother Diabetes Social History Smoking Status: Never smoker Second Hand Exposure: No; Do You Dip or Chew Tobacco: No; Hx Alcohol Use: Yes Alcohol type: beer Hx Substance Use: No Preferred Language: Citizen Of [place] Communication Ability: Effective [employer] Instructor Required: No Beliefs That Will Affect Care: None Current Living Situation: Alone Feels Safe at Home: Yes Assistive Devices: Glasses Allergies Allergies Allergy/AdvReac Type Severity Reaction Status Date / Time No Known Allergies Allergy Verified 11/26/23 22:46 Home Meds Home Medications Medication Instructions Recorded Confirmed lisinopril 40 mg tablet 40 mg PO QAM 03/05/22 11/26/23 lovastatin 20 mg tablet,extended 20 mg PO QAM 03/05/22 11/26/23 release 24 hr aspirin 81 mg tablet,delayed 81 mg PO DAILY 11/26/23 11/26/23 release clopidogrel 75 mg tablet 75 mg PO QAM 11/26/23 11/26/23 multivitamin 1 tab PO DAILY 11/26/23 11/26/23 omega-3 fatty acids 1,000 mg 1,000 mg PO DAILY 11/26/23 11/26/23 capsule pantoprazole 40 mg tablet,delayed 40 mg PO QAM 11/26/23 11/26/23 release sucralfate 1 gram tablet 1 g PO QID PRN 11/26/23 11/26/23 HEARTBURN/INDIGESTION Results & Data (ED) Vital Signs Vital Signs - 24 hr 11/26/23 22:19 11/26/23 22:30 11/26/23 22:30 Temperature 36.8 C Temperature Source Temporal Artery Scan Pulse Rate 83 88 Pulse Rate from SpO2 Sensor Respiratory Rate 18 18 Respiratory Effort / Characteristics Non-Labored Spontaneous Respiratory Depth Normal Respiratory Pattern Regular Blood Pressure 196/103 H 161/86 H Blood Pressure Mean 134 103 Blood Pressure Position Sitting Pulse Oximetry 96 Oxygen Delivery Method Room Air Sepsis Recent Fever Within 48 Hours No Sepsis New/Unexplained Change in Mental Status N/A Sepsis Action Taken by Nursing No Action Required 11/26/23 22:31 11/26/23 22:39 11/26/23 23:06 Temperature Temperature Source Pulse Rate 78 73 Pulse Rate from SpO2 Sensor Respiratory Rate 23 Respiratory Effort / Characteristics Respiratory Depth Respiratory Pattern Blood Pressure Blood Pressure Mean Blood Pressure Position Pulse Oximetry 97 Oxygen Delivery Method Room Air Sepsis Recent Fever Within 48 Hours Sepsis New/Unexplained Change in Mental Status Sepsis Action Taken by Nursing 11/26/23 23:09 11/26/23 23:34 11/26/23 23:36 Temperature Temperature Source Pulse Rate 76 72 Pulse Rate from SpO2 Sensor 72 Respiratory Rate 21 23 Respiratory Effort / Characteristics Respiratory Depth Respiratory Pattern Blood Pressure 159/83 H Blood Pressure Mean 126 Blood Pressure Position Pulse Oximetry 96 Oxygen Delivery Method Sepsis Recent Fever Within 48 Hours Sepsis New/Unexplained Change in Mental Status Sepsis Action Taken by Nursing 11/26/23 23:42 11/26/23 23:50 Temperature Temperature Source Pulse Rate 70 71 Pulse Rate from SpO2 Sensor 70 71 Respiratory Rate 19 21 Respiratory Effort / Characteristics Respiratory Depth Respiratory Pattern Blood Pressure Blood Pressure Mean Blood Pressure Position Pulse Oximetry 96 95 Oxygen Delivery Method Sepsis Recent Fever Within 48 Hours Sepsis New/Unexplained Change in Mental Status Sepsis Action Taken by Nursing Laboratory Data 11/27/23 01:08 11/26/23 22:35 Lab Results 11/26/23 11/26/23 11/26/23 Range/Units 22:35 22:47 23:06 WBC 7.84 (4.8-10.8) K/ul RBC 4.54 L (4.70-6.10) M/uL Hgb 13.2 L (14.0-18.0) g/dl POC Hgb 12.9 L (14.0-18.0) g/dl Hct 39.8 L (42.0-52.0) % POC Hct 38 L (42-52) % MCV 87.7 (80.0-100.0) fL MCH 29.1 (25.0-34.0) pg MCHC 33.2 (32.0-36.0) g/dL RDW Std Deviation 46.4 H (36.4-46.3) fL RDW Coeff of Mela 14.5 (11.5-14.5) % Plt Count 174 (130-400) K/uL MPV 11.3 (9.4-12.4) fL Immature Gran % (Auto) 0.3 % Neut % (Auto) 64.0 % Lymph % (Auto) 20.8 % Pope % (Auto) 11.6 % Eos % (Auto) 2.7 % Baso % (Auto) 0.6 % Neut # (Auto) 5.02 (1.40-6.50) K/uL Lymph # (Auto) 1.63 (1.20-3.40) K/uL [place] # (Auto) 0.91 H (0.11-0.59) K/uL Eos # (Auto) 0.21 (0.00-0.50) K/uL Baso # (Auto) 0.05 (0.00-0.20) K/uL Immature Gran # (Auto) 0.02 (0.01-0.20) K/uL PT 11.3 (9.0-12.0) Seconds INR 1.0 (0.9-1.1) APTT 29 (21-31) Seconds PTT Ratio 1.1 POC Sodium 138 (135-144) mmol/L Sodium 137 (136-145) mmol/L POC Potassium 3.6 (3.3-5.0) mmol/L Potassium 3.5 (3.5-5.1) mmol/L POC Chloride 104 (101-112) mmol/L Chloride 105 (98-107) mmol/L Carbon Dioxide 22 (21-32) mmol/L POC Total CO2 22 L (24-31) mmol/L Anion Gap 10 (3-11) POC Anion Gap 17.0 (16-25) mmol/L POC BUN 19 H (7-18) mg/dl BUN 22 (6-23) mg/dl Creatinine 1.25 (0.6-1.4) mg/dl POC Creatinine 1.4 H (0.6-1.3) mg/dl Est Cr Clr Drug Dosing 49.5 ml/min Est GFR ( Amer) 63.5 ml/min Est GFR (Non-Af Amer) 54.8 ml/min BUN/Creatinine Ratio 17.6 (10-20) Glucose 110 H (70-99(Fasting)) mg/dl POC Glucose (other) 108 H (70-99) mg/dl Calcium 9.0 (8.6-10.3) mg/dl POC Ioniz Calcium Eligio 1.14 (1.12-1.32) mmol/l Magnesium 1.6 L (1.7-2.4) mg/dl Total Bilirubin 0.7 (0.2-1.0) mg/dl AST 18 (13-39) U/L ALT 12 (7-52) U/L Alkaline Phosphatase 44 (34-104) U/L Troponin I High Sens 7.1 (0-20) pg/ml Total Protein 6.8 (6.0-8.3) gm/dl Albumin 4.1 (3.4-5.0) gm/dl Globulin 2.7 (2.5-4.0) gm/dl Albumin/Globulin Ratio 1.5 (0.9-2) POC Stool Occult Blood (Negative) Blood Type B Positive Antibody Screen NEGATIVE 11/26/23 11/27/23 Range/Units 23:19 01:08 WBC (4.8-10.8) K/ul RBC (4.70-6.10) M/uL Hgb 11.6 L (14.0-18.0) g/dl POC Hgb (14.0-18.0) g/dl Hct 35.8 L (42.0-52.0) % POC Hct (42-52) % MCV (80.0-100.0) fL MCH (25.0-34.0) pg MCHC (32.0-36.0) g/dL RDW Std Deviation (36.4-46.3) fL RDW Coeff of Mela (11.5-14.5) % Plt Count (130-400) K/uL MPV (9.4-12.4) fL Immature Gran % (Auto) % Neut % (Auto) % Lymph % (Auto) % Pope % (Auto) % Eos % (Auto) % Baso % (Auto) % Neut # (Auto) (1.40-6.50) K/uL Lymph # (Auto) (1.20-3.40) K/uL [place] # (Auto) (0.11-0.59) K/uL Eos # (Auto) (0.00-0.50) K/uL Baso # (Auto) (0.00-0.20) K/uL Immature Gran # (Auto) (0.01-0.20) K/uL PT (9.0-12.0) Seconds INR (0.9-1.1) APTT (21-31) Seconds PTT Ratio POC Sodium (135-144) mmol/L Sodium (136-145) mmol/L POC Potassium (3.3-5.0) mmol/L Potassium (3.5-5.1) mmol/L POC Chloride (101-112) mmol/L Chloride (98-107) mmol/L Carbon Dioxide (21-32) mmol/L POC Total CO2 (24-31) mmol/L Anion Gap (3-11) POC Anion Gap (16-25) mmol/L POC BUN (7-18) mg/dl BUN (6-23) mg/dl Creatinine (0.6-1.4) mg/dl POC Creatinine (0.6-1.3) mg/dl Est Cr Clr Drug Dosing ml/min Est GFR ( Amer) ml/min Est GFR (Non-Af Amer) ml/min BUN/Creatinine Ratio (10-20) Glucose (70-99(Fasting)) mg/dl POC Glucose (other) (70-99) mg/dl Calcium (8.6-10.3) mg/dl POC Ioniz Calcium Eligio (1.12-1.32) mmol/l Magnesium (1.7-2.4) mg/dl Total Bilirubin (0.2-1.0) mg/dl AST (13-39) U/L ALT (7-52) U/L Alkaline Phosphatase (34-104) U/L Troponin I High Sens (0-20) pg/ml Total Protein (6.0-8.3) gm/dl Albumin (3.4-5.0) gm/dl Globulin (2.5-4.0) gm/dl Albumin/Globulin Ratio (0.9-2) POC Stool Occult Blood Positive A (Negative) Blood Type Antibody Screen Administered Medications Potassium Chloride/Sodium Chloride (Normal Saline W/20 Meq Kcl) 20 meq in 1,000 mls @ 60 mls/hr IV .[id number] ONE; Protocol Stop: 11/27/23 17:15 Last Admin: 11/27/23 01:05 Dose: 60 mls/hr Documented By: MEGHAN Discontinued Medications Sodium Chloride (Nss) 500 mls @ 999 mls/hr IV .[id number] LIAM Stop: 11/26/23 23:00 Last Infusion: 11/26/23 23:48 Dose: Infused Documented By: Admin: 11/26/23 22:50 Dose: 999 mls/hr Documented By: STANLEY Pantoprazole Sodium 80 mg/ (Dextrose) 120 mls @ 480 mls/hr IV ONE STA Stop: 11/26/23 22:43 Last Infusion: 11/26/23 23:48 Dose: Infused Documented By: Admin: 11/26/23 23:32 Dose: 480 mls/hr Documented By: MEGHAN Thiamine HCl 100 mg/ Syringe 10 mls @ 2 mls/min IV NOW STA Stop: 11/27/23 00:51 Last Admin: 11/27/23 01:05 Dose: 2 mls/min Documented By: MEGHAN Ioversol (Optiray 320 100ml) 100 ml IV ONCE ONE Stop: 11/26/23 23:29 Last Admin: 11/26/23 23:28 Dose: 93 ml Documented By: TORY Discharge Plan Visit Data Chief Complaint: Rectal Bleed Stated Complaint: RECTAL BLEED ED Provider: Gary Schultz Discharge Problem: Rectal bleeding Patient Disposition: Being Evaluated by Hospitalist Forms Stand Alone Forms: My [facility] Prescriptions Prescriptions: No Action lisinopril 40 mg Tablet 40 mg PO QAM lovastatin 20 mg Tablet Extended Release 24 Hr 20 mg PO QAM multivitamin Tablet 1 tab PO DAILY omega-3 fatty acids 1,000 mg Capsule 1,000 mg PO DAILY sucralfate 1 gram tablet 1 g PO QID PRN (Reason: HEARTBURN/INDIGESTION) clopidogrel 75 mg tablet 75 mg PO QAM aspirin 81 mg Tablet,Delayed Release (Dr/Ec) 81 mg PO DAILY Rx Instructions: PER PT "DID NOT TAKE TODAY, 11/26/23, SINCE BLEEDING". pantoprazole 40 mg tablet,delayed release (DR/EC) 40 mg PO QAM Referrals Referrals: Steve Meade MD [Primary Care Provider] -
[2023-11-26 22:56] LABS: Basophils # (auto) 0.05 K/uL (0.00-0.20); Basophils % (auto) 0.6 %; Eosinophils # (auto) 0.21 K/uL (0.00-0.50); Eosinophils % (auto) 2.7 %; Hematocrit (blood only) 39.8 % (42.0-52.0); Hemoglobin 13.2 g/dl (14.0-18.0); Immature Granulocytes # (auto) 0.02 K/uL (0.01-0.20); Immature Granulocytes % (auto) 0.3 %; Lymphocytes # (auto) 1.63 K/uL (1.20-3.40); Lymphocytes % (auto) 20.8 %; Mean Corpuscular Hemoglobin 29.1 pg (25.0-34.0); Mean Corpuscular Hgb Conc 33.2 g/dL (32.0-36.0); Mean Corpuscular Volume 87.7 fL (80.0-100.0); Mean Platelet Volume 11.3 fL (9.4-12.4); Monocytes # (auto) 0.91 K/uL (0.11-0.59); Monocytes % (auto) 11.6 %; Neutrophils # (auto) 5.02 K/uL (1.40-6.50); Platelet Count 174 K/uL (130-400); RDW Coefficient of Variation 14.5 % (11.5-14.5); RDW Standard Deviation 46.4 fL (36.4-46.3); Red Blood Count 4.54 M/uL (4.70-6.10); White Blood Count 7.84 K/ul (4.8-10.8)
[2023-11-26 23:00] LABS: iSTAT Creatinine 1.4 mg/dl (0.6-1.3); iSTAT Hemoglobin 12.9 g/dl (14.0-18.0); iSTAT Ionized Calcium 1.14 mmol/l (1.12-1.32); iSTAT Potassium 3.6 mmol/L (3.3-5.0)
[2023-11-26 23:15] LABS: Albumin Globulin Ratio 1.5 (0.9-2); Albumin Level 4.1 gm/dl (3.4-5.0); BUN Creatinine Ratio 17.6 (10-20); Bilirubin,Total 0.7 mg/dl (0.2-1.0); Creatinine Clr Calc Pharmacy 49.5 ml/min; Est GFR (African American) 63.5 ml/min; Est GFR (Non-African American) 54.8 ml/min; Globulin 2.7 gm/dl (2.5-4.0); Potassium 3.5 mmol/L (3.5-5.1); Total Protein 6.8 gm/dl (6.0-8.3)
[2023-11-26 23:22] LABS: Troponin I High Sensitivity 7.1 pg/ml (0-20)
[2023-11-26] MEDS: OPTIRAY 320 100ml IV ONE (23:28)
[2023-11-26 23:32] LABS: Partial Thromboplastin Ratio 1.1; Partial Thromboplastin Time 29 Seconds (21-31); Prothrombin Time 11.3 Seconds (9.0-12.0)
[2023-11-26] MEDS: PANTOprazole 80 MG in DEXTROSE 5% 100 ML IV STA (23:32)
[2023-11-27 00:27] LABS: Magnesium 1.6 mg/dl (1.7-2.4)
--- NOTE | 2023-11-27 00:37 | History & Physical Report ---
Date of Service November 27, 2023 Assessment & Plan (1) GI bleed: Plan: Possible UGIB/LGIB combo history PUD/GERD Colitis on CT chronic diastolic heart failure (EF 60 to 65%, TTE 2023), patient euvolemic to dry hx aortic stenosis status post Ross AVR (07/2023, [place], [place]) hypertension, slight elevated pulmonary hypertension as per records history traumatic subdural hematoma meningioma status post surgery At risk alcohol intake Hyperglycemia rule out DM past tobacco abuse GMF IV PPI for possible UGIB Stool workup, Zosyn GI consult re: GI bleed Appropriate to hold antiplatelet Rx for now given GI bleed Follow H&H, transfuse PRBC if hemoglobin less than 7 and or for symptomatic anemia SERGIO S at risk protocol, DT precautions Check hemoglobin A1c DVT prophylaxis. SCDs Re: GI bleed Full code Text document was generated using [employer] voice recognition software. It may contain grammatical or spelling errors. Kindly contact undersigned for clarification of any documentation item in question. History of Present Illness Chief Complaint: GI bleed Primary Care Provider: Steve Meade MD History obtained from patient and records. Medical history significant for chronic diastolic heart failure (EF 60 to 65%, TTE 2023), aortic stenosis status post Ross AVR (07/2023, [place], [place]), hypertension, pulmonary hypertension, history PUD/GERD, history traumatic subdural hematoma, meningioma status post surgery, urolithiasis, diverticulosis, rheumatoid arthritis, daily alcohol intake, past tobacco abuse. Last [facility] confinement 2021 for hydronephrosis/obstructive uropathy status post stent placement. Patient confined at [facility] in [place], [place] last September 2023 for GI bleed. Patient travels to [place] in his motor home during wintertime. EGD colonoscopy just showed diverticulosis as per patient. Patient antiplatelet Rx resumed. Yesterday morning, patient noted painless bloody diarrhea symptoms with note of melanotic stools later on as per patient. No fever, no chills. No chest pain, no SOB. Denies OTC NSAID intake. IV PPI administered at the ER. 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 Allergies Allergy/AdvReac Type Severity Reaction Status Date / Time No Known Allergies Allergy Verified 11/26/23 22:46 Home Medications Medication Instructions Recorded Confirmed Type lisinopril 40 mg tablet 40 mg PO QAM 03/05/22 11/26/23 History lovastatin 20 mg tablet,extended 20 mg PO QAM 03/05/22 11/26/23 History release 24 hr aspirin 81 mg tablet,delayed 81 mg PO DAILY 11/26/23 11/26/23 History release clopidogrel 75 mg tablet 75 mg PO QAM 11/26/23 11/26/23 History multivitamin 1 tab PO DAILY 11/26/23 11/26/23 History omega-3 fatty acids 1,000 mg 1,000 mg PO DAILY 11/26/23 11/26/23 History capsule pantoprazole 40 mg tablet,delayed 40 mg PO QAM 11/26/23 11/26/23 History release sucralfate 1 gram tablet 1 g PO QID PRN 11/26/23 11/26/23 History HEARTBURN/INDIGESTION Past Med/Surg History Problem List GI bleed Rectal bleeding (Acute) Encounter for pre-operative examination Hypertension (Chronic) Dizziness (Acute) Right sided weakness (Acute) Subdural hematoma (Acute) No significant past surgical history Medical History Bilateral renal cysts BPH (benign prostatic hyperplasia) GERD (gastroesophageal reflux disease) History of bleeding ulcers 15 yrs ago History of kidney stones HLD (hyperlipidemia) HTN (hypertension) Nephrolithiasis Renal insufficiency Subdural hematoma 2016 > unknown cause, [facility] [place], drained, no further issues Surgical History History of colonoscopy History of cystoscopy with stent History of esophagogastroduodenoscopy (EGD) History of tonsillectomy History of total hip arthroplasty right History of total knee replacement bilat Hx of removal of cyst "from brain" benign, removed approx 2 yrs ago Family History Mother Diabetes Brother Diabetes Social History Smoking Status: Former smoker Second Hand Exposure: No; Do You Dip or Chew Tobacco: No; Hx Alcohol Use: Yes Alcohol type: beer Hx Substance Use: No Preferred Language: Kyrgyz Communication Ability: Effective Transmissions Systems Operator Required: No Beliefs That Will Affect Care: None Current Living Situation: Alone Current Living Situation Comment: with dog (Snoop) in [facility], [address] Other Information That Helps Us Care for You: No Feels Safe at Home: Yes Safety Concerns: Feels Safe At This Time Assistive Devices: Denture - Upper and Glasses Review of Systems Review of Systems: As per HPI, all other systems reviewed and negative Physical Exam Physical Exam: GENERAL: Comfortable, no respiratory distress SKIN: Pallor, warm HEENT: Bespectacled, pale palpebral conjunctivae, no ptosis, dry buccal mucosa NECK : Supple, no tenderness CHEST : CTA, no tenderness HEART : RRR, systolic murmur ABDOMEN: Some distention, nontender EXTREMITIES : No LE swelling/tenderness, no other conspicuous deformities noted NEUROLOGIC : Coherent, no facial asymmetry, no other gross focality Results & Data Results & Data Vital Signs (Past 12 Hours) Vital Signs Temp Pulse Resp BP Pulse Ox O2 Del Method 11/26/23 23:50 71 21 95 11/26/23 23:42 70 19 96 11/26/23 23:36 72 23 96 11/26/23 23:34 159/83 H 11/26/23 23:09 76 21 11/26/23 23:06 73 23 11/26/23 22:39 97 Room Air 11/26/23 22:31 78 11/26/23 22:30 88 18 11/26/23 22:30 161/86 H 11/26/23 22:19 36.8 C 83 18 196/103 H 96 Room Air Laboratory Results Laboratory Results WBC 7.84 K/ul (4.8-10.8) 11/26/23 22:35 RBC 4.54 M/uL (4.70-6.10) L 11/26/23 22:35 Hgb 13.2 g/dl (14.0-18.0) L 11/26/23 22:35 POC Hgb 12.9 g/dl (14.0-18.0) L 11/26/23 22:47 Hct 39.8 % (42.0-52.0) L 11/26/23 22:35 POC Hct 38 % (42-52) L 11/26/23 22:47 MCV 87.7 fL (80.0-100.0) 11/26/23 22:35 MCH 29.1 pg (25.0-34.0) 11/26/23 22: MCHC 33.2 g/dL (32.0-36.0) 11/26/23 22:35 RDW Std Deviation 46.4 fL (36.4-46.3) H 11/26/23 22:35 RDW Coeff of Mela 14.5 % (11.5-14.5) 11/26/23 22: Plt Count 174 K/uL (130-400) 11/26/23 22:35 MPV 11.3 fL (9.4-12.4) 11/26/23 22:35 Immature Gran % (Auto) 0.3 % 11/26/23 22:35 Neut % (Auto) 64.0 % 11/26/23 22:35 Lymph % (Auto) 20.8 % 11/26/23 22:35 [place] % (Auto) 11.6 % 11/26/23 22:35 Eos % (Auto) 2.7 % 11/26/23 22:35 Baso % (Auto) 0.6 % 11/26/23 22:35 Neut # (Auto) 5.02 K/uL (1.40-6.50) 11/26/23 22:35 Lymph # (Auto) 1.63 K/uL (1.20-3.40) 11/26/23 22:35 [place] # (Auto) 0.91 K/uL (0.11-0.59) H 11/26/23 22:35 Eos # (Auto) 0.21 K/uL (0.00-0.50) 11/26/23 22:35 Baso # (Auto) 0.05 K/uL (0.00-0.20) 11/26/23 22:35 Immature Gran # (Auto) 0.02 K/uL (0.01-0.20) 11/26/23 22:35 PT 11.3 Seconds (9.0-12.0) 11/26/23 22:35 INR 1.0 (0.9-1.1) 11/26/23 22:35 APTT 29 Seconds (21-31) 11/26/23 22:35 PTT Ratio 1.1 11/26/23 22:35 POC Sodium 138 mmol/L (135-144) 11/26/23 22:47 Sodium 137 mmol/L (136-145) 11/26/23 22:35 POC Potassium 3.6 mmol/L (3.3-5.0) 11/26/23 22:47 Potassium 3.5 mmol/L (3.5-5.1) 11/26/23 22:35 POC Chloride 104 mmol/L (101-112) 11/26/23 22:47 Chloride 105 mmol/L (98-107) 11/26/23 22:35 Carbon Dioxide 22 mmol/L (21-32) 11/26/23 22:35 POC Total CO2 22 mmol/L (24-31) L 11/26/23 22:47 Anion Gap 10 (3-11) 11/26/23 22:35 POC Anion Gap 17.0 mmol/L (16-25) 11/26/23 22:47 POC BUN 19 mg/dl (7-18) H 11/26/23 22:47 BUN 22 mg/dl (6-23) 11/26/23 22:35 Creatinine 1.25 mg/dl (0.6-1.4) 11/26/23 22:35 POC Creatinine 1.4 mg/dl (0.6-1.3) H 11/26/23 22:47 Est Cr Clr Drug Dosing 49.5 ml/min 11/26/23 22:35 Est GFR ( Amer) 63.5 ml/min 11/26/23 22:35 Est GFR (Non-Af Amer) 54.8 ml/min 11/26/23 22:35 BUN/Creatinine Ratio 17.6 (10-20) 11/26/23 22:35 Glucose 110 mg/dl (70-99(Fasting)) H 11/26/23 22:35 POC Glucose (other) 108 mg/dl (70-99) H 11/26/23 22:47 Calcium 9.0 mg/dl (8.6-10.3) 11/26/23 22:35 POC Ioniz Calcium Eligio 1.14 mmol/l (1.12-1.32) 11/26/23 22:47 Magnesium 1.6 mg/dl (1.7-2.4) L 11/26/23 22:35 Total Bilirubin 0.7 mg/dl (0.2-1.0) 11/26/23 22:35 AST 18 U/L (13-39) 11/26/23 22:35 ALT 12 U/L (7-52) 11/26/23 22:35 Alkaline Phosphatase 44 U/L (34-104) 11/26/23 22:35 Troponin I High Sens 7.1 pg/ml (0-20) 11/26/23 22:35 Total Protein 6.8 gm/dl (6.0-8.3) 11/26/23 22:35 Albumin 4.1 gm/dl (3.4-5.0) 11/26/23 22:35 Globulin 2.7 gm/dl (2.5-4.0) 11/26/23 22:35 Albumin/Globulin Ratio 1.5 (0.9-2) 11/26/23 22:35 POC Stool Occult Blood Positive (Negative) A 11/26/23 23:19 Blood Type B Positive 11/26/23 23:06 Antibody Screen NEGATIVE 11/26/23 23:06 Diagnostic Findings EKG as per my interpretation :Rate 75, NSR, LAD, LAFB, RBBB, T wave abnormalities inferior leads
[2023-11-27] MEDS ORDERED: LORazepam 1 MG in SYRINGE 0.5 ML IV PRN (00:41)
[2023-11-27] MEDS ORDERED: PROMETHAZINE HCL 6.25 MG in SODIUM CHLORIDE 0.9% 50 ML IV PRN (00:41)
[2023-11-27] MEDS ORDERED: oxyCODONE HCL IR 5 MG TAB (IMMEDIATE RELEASE) PO PRN (00:41)
[2023-11-27] MEDS: THIAMINE HCL 100 MG in SYRINGE 9 ML IV STA (01:05)
[2023-11-27] MEDS: NSS + 20MEQ KCL 20 MEQ/1,000 ML BAG IV ONE (01:05)
[2023-11-27 01:18] LABS: Hematocrit (blood only) 35.8 % (42.0-52.0); Hemoglobin 11.6 g/dl (14.0-18.0)
--- NOTE | 2023-11-27 01:23 | CT Scan Report ---
Exam(s): CT ABDOMEN + PELVIS With Contrast IV Amt: 93 ML OPTIRAY 320 EXAM: CT Abdomen and Pelvis With Intravenous Contrast CLINICAL HISTORY: Reason for exam: rectal bleeding. TECHNIQUE: Axial computed tomography images of the abdomen and pelvis with intravenous contrast. CTDI is 23.56 mGy and DLP is 1086.7 mGy-cm. Automated exposure control was utilized for the study. A dose lowering technique was utilized adhering to the principles of ALARA. CONTRAST: Patient received 93 ML OPTIRAY 320 of IV contrast COMPARISON: February 15, 2022 FINDINGS: Lung bases: Mild fibrotic changes in the lung bases. No consolidation. ABDOMEN: Liver: Unremarkable. No mass. Gallbladder and bile ducts: Unremarkable. No calcified stones. No ductal dilation. Pancreas: Unremarkable. No mass. No ductal dilation. Spleen: Unremarkable. No splenomegaly. Adrenals: Unremarkable. No mass. Kidneys and ureters: There is a nonobstructive 6 mm calyceal calculus in the lower pole the left kidney. No hydronephrosis or ureterolithiasis is seen. Multiple cysts throughout both kidneys measuring up to 6.6 cm on the left is unchanged. No follow-up is required. Stomach and bowel: There is severe diverticulosis of the colon, greatest involving the left and sigmoid colon per no focal diverticulitis is seen. There is mild wall edema involving the sigmoid colon suggesting colitis. There is a small amount of fluid in the rectum. No pneumoperitoneum, free fluid, or abscess is seen. The appendix is normal. No obstruction. PELVIS: Appendix: See above. Bladder: Mild 6 mm urinary bladder wall thickening measuring 18 and completely distended status, less likely cystitis. Reproductive: Unremarkable as visualized. ABDOMEN and PELVIS: Intraperitoneal space: See above. Bones/joints: Metallic artifact over the pelvis from a right hip arthroplasty. No acute fracture or dislocation is seen. Moderate multilevel degenerative changes are seen throughout the spine. No acute fracture or subluxation. Soft tissues: Unremarkable. Vasculature: Previous transcatheter aortic valvuloplasty. The abdominal aorta is mildly calcified but nondilated. There is no aneurysm or dissection. Lymph nodes: Unremarkable. No enlarged lymph nodes. IMPRESSION: 1. There is severe diverticulosis of the colon, greatest involving the left and sigmoid colon. No focal diverticulitis is seen. There is mild wall edema involving the sigmoid colon suggesting colitis. There is a small amount of fluid in the rectum. No pneumoperitoneum, free fluid, or abscess is seen. The appendix is normal. 2. There is a nonobstructive 6 mm calyceal calculus in the lower pole the left kidney. No hydronephrosis or ureterolithiasis is seen. Electronically signed by: Gary Nelson MD 11/27/23 01:23 AM
[2023-11-27 02:00] LABS: Adenovirus F 40/41 PCR Not Detected (NotDetected); Astrovirus PCR Not Detected (NotDetected); Campylobacter PCR Not Detected (NotDetected); Cryptosporidium PCR Not Detected (NotDetected); Cyclospora cayetanensis PCR Not Detected (NotDetected); Entamoeba histolytica PCR Not Detected (NotDetected); Enteroaggregative E.coli(EAEC) Not Detected (NotDetected); Enteropathogenic E.coli (EPEC) Not Detected (NotDetected); Enterotoxigenic E.coli (ETEC) Not Detected (NotDetected); Giardia lamblia PCR Not Detected (NotDetected); Norovirus GI/GII PCR Not Detected (NotDetected); Plesiomonas shigelloides PCR Not Detected (NotDetected); Rotavirus A PCR Not Detected (NotDetected); Salmonella PCR Not Detected (NotDetected); Sapovirus PCR Not Detected (NotDetected); Shiga-like Toxin E.coli (STEC) Not Detected (NotDetected); Shigella/Enteroinvasive E.coli Not Detected (NotDetected); Vibrio cholerae PCR Not Detected (NotDetected); Vibrio species PCR Not Detected (NotDetected); Yersinia enterocolitica PCR Not Detected (NotDetected)
[2023-11-27] MEDS: MAGNESIUM SULFATE / D5W 1 GM/100 ML BAG IV ONE (03:49)
[2023-11-27] MEDS: PANTOprazole 40 MG in DEXTROSE 5% MINI-B 100 ML IV SCH (03:49)
[2023-11-27] MEDS: PIPERACILLIN/TAZOBACTAM 4.5 GM/100 ML BAG IV STA (06:20)
[2023-11-27 07:25] LABS: Basophils # (auto) 0.05 K/uL (0.00-0.20); Basophils % (auto) 0.8 %; Eosinophils # (auto) 0.19 K/uL (0.00-0.50); Eosinophils % (auto) 2.9 %; Hematocrit (blood only) 33.5 % (42.0-52.0); Hemoglobin 11.1 g/dl (14.0-18.0); Immature Granulocytes # (auto) 0.01 K/uL (0.01-0.20); Immature Granulocytes % (auto) 0.2 %; Lymphocytes # (auto) 1.16 K/uL (1.20-3.40); Lymphocytes % (auto) 17.9 %; Mean Corpuscular Hemoglobin 29.4 pg (25.0-34.0); Mean Corpuscular Hgb Conc 33.1 g/dL (32.0-36.0); Mean Corpuscular Volume 88.6 fL (80.0-100.0); Mean Platelet Volume 11.1 fL (9.4-12.4); Monocytes % (auto) 10.8 %; Neutrophils # (auto) 4.36 K/uL (1.40-6.50); Neutrophils % (auto) 67.4 %; Platelet Count 146 K/uL (130-400); RDW Coefficient of Variation 14.3 % (11.5-14.5); RDW Standard Deviation 46.5 fL (36.4-46.3); Red Blood Count 3.78 M/uL (4.70-6.10); White Blood Count 6.47 K/ul (4.8-10.8)
--- OUTSIDE RECORDS SUMMARY | 2023-11-27 07:42 | External Medical Summary | Summary of Care ---
Author Name Unknown Organization [facility] Address [address] [facility] [place] [address] Phone [phone] Care Team Providers Care Home Health Specialist Name Role Phone Bennett De MD Primary Care Provide r Reason for Visit * Reason Comments Re-Check Encounter Details Date Type Department Care Team (Late st Contact Info) Description 10/22/2023 10:00 AM EDT Office Visit Family Medicine [address] [place] [address] Beverly Edward PA-C [address] [place] [address] [place] [id number] Hypertensive kidney disease with stage 3a chronic kidney disease (HCC)*; Dyslipidemia, goal LDL below 100; Mixed dyslipidemia; Primary hypertension; Gastroesophageal reflux disease with esophagitis without hemorrhage; Stage 3a chronic kidney disease (HCC); Severe calcific aortic stenosis Allergies No known active allergiesdocumented as of this encounter (statuses as of 10/22/2023) Medications Medication Sig Dispensed Refills Start Date End Date Status Lovastatin 20 MG Oral Tablet (Mevacor)Indicatio ns:Dyslipidemia, goal LDL below 130 Take 1 Tablet by mouth at bedtime. 90 Tablet 3 10/15/2022 Active Lisinopril 40 MG Oral TabletIndications: Primary hypertension TAKE 1 TABLET EVERY MORNING 90 Tablet 3 10/15/2022 Active Fenofibrate 145 MG Oral Tablet (Tricor) Take 1 Tablet by mouth in the morning. 90 Tablet 1 01/28/2023 Active Meloxicam 15 MG Oral Tablet Take 1 Tablet by mouth in the morning. 0 01/23/2023 Active amLODIPine Besylate 5 MG Oral Tablet (Norvasc)Indicatio ns:Hypertensive kidney disease with stage 3b chronic kidney disease (HCC) Take 1 Tablet by mouth in the morning. 90 Tablet 3 03/20/2023 Active Omeprazole 20 MG Oral Capsule Delayed Release (PriLOSEC)Indicati ons:Gastroesophage al reflux disease with esophagitis without hemorrhage,History of peptic ulcer disease TAKE 1 CAPSULE EVERY MORNING 90 Capsule 1 05/01/2023 Active Sucralfate 1 GM Oral Tablet (Carafate)Indicati ons:Peptic ulcer,History of peptic ulcer disease TAKE 1 TABLET BY MOUTH FOUR TIMES A DAY 360 Tablet 3 10/09/2023 Active Pantoprazole Sodium 40 MG Oral Tablet Delayed Release (Protonix)Indicati ons:Gastroesophage al reflux disease with esophagitis without hemorrhage Take 1 Tablet by mouth in the morning. 90 Tablet 1 10/22/2023 Active Clopidogrel Bisulfate 75 MG Oral Tablet (Plavix)Indication s:Severe calcific aortic stenosis Take 1 Tablet by mouth in the morning. 90 Tablet 1 10/22/2023 Active Pantoprazole Sodium 40 MG Oral Tablet Delayed Release (Protonix) Take 1 Tablet by mouth in the morning. 0 10/22/2023 10/22/2023 Discontinued (Refill) Clopidogrel Bisulfate 75 MG Oral Tablet (Plavix) Take 1 Tablet by mouth in the morning. 0 10/22/2023 10/22/2023 Discontinued (Refill) documented as of this encounter (statuses as of 10/22/2023) Active Problems Problem Noted Date Diagnosed Date Hypertensive kidney disease with stage 3a chronic kidney disease 01/21/2023 Overview: Per CKD protocol Severe calcific aortic stenosis 06/22/2022 Status post bilateral knee replacements 11/21/19 18 Dyslipidemia, goal LDL below 100 05/31/2009 Mixed dyslipidemia 06/02/2008 Overview: CHOL 206, HDL 46, LDL 130, TRIG 206 ADVANCE DIRECTIVE INFORMATION 06/06/2006 Overview: No, Advance Directive brochure given to patient. LOC PRIM [id number] 03/21/2004 History of peptic ulcer disease Overview: ICD-10 update of inactive term Primary hypertension Reflux esophagitis Bilateral renal cysts Degenerative arthritis of left knee Stage 3a chronic kidney disease documented as of this encounter (statuses as of 10/22/2023) Resolved Problems Problem Noted Date Diagnosed Date Resolved Date Hypertensive kidney disease with chronic kidney disease stage III 11/10/2018 01/24/2023 Overview: Per CKD protocol Kidney disease, chronic, sta ge III (GFR 30-59 ml/min) 01/21/2018 11/19/2019 Overview: Per CKD protocol #1 - Lichen planus 01/27/2014 11/20/2017 Overview: pigmentosus (hyperpigmented rash) Dyslipidemia, goal to be determined 05/19/2009 05/31/2011 Overview: Per Lipid Taxonomy. CHOL 206, HDL 46, LDL 130, TRIG 206 Elevated C-reactive protein (CRP) 06/02/2008 11/20/2017 Overview: CRP 4.77 Mixed dyslipidemia 06/02/2008 Overview: Per Lipid Taxonomy. CHOL 206, HDL 46, LDL 130, TRIG 206 BENIGN NEOPLASM LG BOWEL Arthritis, rheumatoid 2015 documented as of this encounter (statuses as of 10/22/2023) Immunizations Name Administration Dates Next Due COVID-19 mRNA, LNP-s, No Pre serve, 2-Dose Series (Moderna) 08/29/2020,08/01/2020 COVID-19, LNP-s, No Preserve , Eris-sucrose, Ages 12+ (Pfizer) 05/08/2021 Seasonal Influenza, Quadrivalent Hd (Fluzone Hd) 04/26/2022 TDAP (age 11 and older)(Adacel) 06/04/2007 documented as of this encounter Social History Tobacco Use Types Packs/Day Years Used Date Smoking Tobacco: Former Cigarettes 0.5 5 0 06/10/1977 - 06/10/1982 Smokeless Tobacco: Never Comments:Quit 20 years ago. Alcohol Use Standard Drinks/Week Comments Yes 0 (1 standard drink = 0.6 oz pure alcohol) 3-4 glasses of wine per week or so PHQ-2 Answer Date Recorded PHQ-2 Score -1 03/01/2020 Sex and Gender Information Value Date Recorded Sex Assigned at Not on file Gender Identity Not on file Sexual Orientation Not on file Job Start Date Occupation Industry Not on file Not on file Not on file documented as of this encounter Last Filed Vital Signs Vital Sign Reading Time Taken Comments Blood Pressure 122/70 10/22/2023 9:39 AM EDT Pulse 84 10/22/2023 9:39 AM EDT Temperature 36 C (96.8 F) 10/22/2023 9:39 AM EDT Respiratory Rate 16 10/22/2023 9:39 AM EDT Oxygen Saturation 97% 10/22/2023 9:39 AM EDT Inhaled Oxygen Concentration - - Weight 81.2 kg (179 lb) 10/22/2023 9:39 AM EDT Height 170.2 cm (5' 7") 10/22/2023 9:39 AM EDT Body Mass Index 28.04 10/22/2023 9:39 AM EDT documented in this encounter Progress Notes * Beverly Edward PA-C - 10/22/2023 9:47 AM EDT Nursing Notes: Macie Castro RN 10/22/23 0925 Sign at exiting of workspace Pt had a Trans Aortic Valve replacement in [place] on 07-26-23, now on Plavix for 6 mo Pt here today for recheck. Pt with PMH of HTN, dyslipidemia, GERD, SP TAVR, CKD, OA. Pt had TAVR about 3 months ago, in [place]. On plavix for 6 months. Pt has no issues at this time. Does need FU with cardiology. Will schedule this when he checks out. Review of patient's allergies indicates: No Known Allergies Current Outpatient Medications Medication Sig Dispense Refill Lovastatin 20 MG Oral Tablet (Mevacor) Take 1 Tablet by mouth at bedtime. 90 Tablet 3 Lisinopril 40 MG Oral Tablet TAKE 1 TABLET EVERY MORNING 90 Tablet 3 amLODIPine Besylate 5 MG Oral Tablet (Norvasc) Take 1 Tablet by mouth in the morning. 90 Tablet 3 Sucralfate 1 GM Oral Tablet (Carafate) TAKE 1 TABLET BY MOUTH FOUR TIMES A DAY 360 Tablet 3 Pantoprazole Sodium 40 MG Oral Tablet Delayed Release (Protonix) Take 1 Tablet by mouth in the morning. Clopidogrel Bisulfate 75 MG Oral Tablet (Plavix) Take 1 Tablet by mouth in the morning. Fenofibrate 145 MG Oral Tablet (Tricor) Take 1 Tablet by mouth in the morning. 90 Tablet 1 Meloxicam 15 MG Oral Tablet Take 1 Tablet by mouth in the morning. (Patient not taking: Reported on02/25/2023) Omeprazole 20 MG Oral Capsule Delayed Release (PriLOSEC) TAKE 1 CAPSULE EVERY MORNING 90 Capsule 1 No current facility-administered medications for this visit. Past Medical History: Diagnosis Date Acute gastric ulcer without mention of hemorrhage, perforation, or obstruction 2006 GI bleed, [place] Arthritis, rheumatoid (HCC) Benign hypertension with CKD (chronic kidney disease) stage III (HCC) 11/22/2017 Benign neoplasm of colon 1990 Bilateral renal cysts CKD (chronic kidney disease), stage III (HCC) 11/22/2017 GFR 57.2 Degenerative arthritis of left knee Diastolic dysfunction 01/12/2016 grade I Elevated C-reactive protein (CRP) 06/02/2008 CRP 4.77 Encounter for hepatitis C screening test for low risk patient 11/21/2017 negative HTN, goal below 140/90 Mixed dyslipidemia 06/02/2008 CHOL 206, HDL 46, LDL 130, TRIG 206 Personal history of peptic ulcer disease GI bleed 1990 Reflux esophagitis Severe calcific aortic stenosis 06/22/2022 Special screening for malignant neoplasms, colon colonoscopy in spring, which was normal Stage 3a chronic kidney disease (HCC) Subdural hematoma, post-traumatic (HCC) 10/31/2015 right sided weakness, sent to [place] Ureteral stone with hydronephrosis 02/16/2022 1.7 cm stone left ureter Social History Socioeconomic History Marital status: Spouse name: Not on file Number of children: 1 Years of education: Not on file Highest education level: Not on file Occupational History 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 Substance and Sexual Activity Alcohol use: Yes Alcohol/week: 0.0 standard drinks of alcohol Comment: 3-4 glasses of wine per week or so Drug use: No Sexual activity: Yes Partners: Female Other Topics Concern Not on file Social History Narrative Not on file Social Determinants of Health Financial Resource Strain: Not on file Food Insecurity: Not on file Transportation Needs: Not on file Physical Activity: Not on file Stress: Not on file Social Connections: Not on file Intimate Partner Violence: Not on file Housing Stability: Not on file O:Blood pressure 122/70, pulse 84, temperature 36 C (96.8 F), resp. rate 16, height 1.702 m (5'7"), weight 81.2 kg (179 lb), SpO2 97%. GENERAL: alert, healthy, and no distress NECK: supple, no adenopathy, no bruits, thyroid normal size, non-tender, without nodularity EYES: PERRLA, conjunctiva are pink and non-injected, sclera clear EARS: External ears normal, Canals clear, TM's Normal NOSE: no mucosal erythema, no mucosal edema, no purulent discharge OROPHARYNX: no exudate, no erythema, lips, buccal mucosa, and tongue normal, and mucous membranes are moist HEART: regular rate & rhythm, no murmur, and no gallops LUNGS: chest symmetric with normal AP diameter, no chest deformities noted, no chest wall tenderness, lungs clear to auscultation ABDOMEN: abdomen soft, non-tender, normal bowel sounds, and no masses or organomegaly A:Hypertensive kidney disease with stage 3a chronic kidney disease (HCC) (Primary) Dyslipidemia, goal LDL below 100 Mixed dyslipidemia Primary hypertension Gastroesophageal reflux disease with esophagitis without hemorrhage - Pantoprazole Sodium 40 MG Oral Tablet Delayed Release (Protonix); Take 1 Tablet by mouth in the morning. Stage 3a chronic kidney disease (HCC) Severe calcific aortic stenosis - Clopidogrel Bisulfate 75 MG Oral Tablet (Plavix); Take 1 Tablet by mouth in the morning. Meds refilled. Any questions/problems, please call. If anything changes, worsens, develops new sx, please call [facility]. Schedule cardio appt. Follow-up: Return in about 6 months (around 04/23/2024), or if symptoms worsen or fail to improve. | Check-out note: Pt needs an appt to establish with a Doctor Beverly Edward PA-C documented in this encounter Nursing Notes * Macie Castro, RN - 10/22/2023 9:45 AM EDT Pt had a Trans Aortic Valve replacement in [place] on 07-26-23, now on Plavix for 6 mo documented in this encounter Plan of Treatment Upcoming Encounters Date Type Department Care Team (Late st Contact Info) Description 12/26/2023 8:30 AM EDT Office Visit Cardiology, [facility] [address] [place] [address] [place], [address] [place] [address] 10/22/2024 8:40 AM EDT Office Visit Family Medicine [address] [place] [phone] Bennett De MD [address] [place] [address] [place] [id number] Scheduled Procedures Name Priority Associated Diagnoses Date/Ti me COLONOSCOPY FLEXIBLE PROXIMA L DIAGNOSTIC Recall Special screening for malignant neoplasms, colon Health Maintenance Due Date Last Done Comments Zoster Vaccines (1 of 2) 1995 Pneumococcal Vaccine: 65+ Years (1 of 1 - PCV) 2010 Depression Screening 03/01/2021 03/01/2020 COVID-19 Vaccine ( season) 2023 05/08/2021, 08/29/2020, 08/01/2020 Albumin/Creatinine Ratio 12/27/2023 023, 11/04/2019, 11/22/2017 CKD HGB USE SMARTSET 84902 12/27/202312/26, 12/26/2021, 11/04/2019, Additional history exists CKD PHOS USE SMARTSET 89957 12/27/202312/08, 12/26/2021, 11/04/2019 Influenza Vaccine (FLU shot) (Season Ended) 2024 04/26/2022 GFR 02/29/2024 08/29/2023, 08/09, 08/14/2023, Additional history exists DTaP,Tdap,and Td Vaccines (2 - Td or Tdap) 06/10/2024 06/04/2007 Postponed from 06/04/2017 (Done Elsewhere) GARDASIL-HPV IMMUNIZATION SERIES Aged Out No longer eligible based on patient's age to complete this topic Hepatitis B Aged Out No longer eligi ble based on patient's age to complete this topic MENINGOCOCCAL (MENACTRA/MENVEO) Aged Out No longer eligible based on patient's age to complete this topic documented as of this encounter Medical Devices Not on filedocumented as of this encounter Visit Diagnoses Diagnosis Hypertensive kidney disease with stage 3a chronic kidney disease (HCC)- Primary Dyslipidemia, goal LDL below 100 Other and unspecified hyperlipidemia Mixed dyslipidemia Mixed hyperlipidemia Primary hypertension Unspecified essential hypertension Gastroesophageal reflux disease with esophagitis without hemorrhage Stage 3a chronic kidney disease (HCC) Severe calcific aortic stenosis Aortic valve disorders documented in this encounter Care Teams Home Health Specialist Relationship Specialty Start Date End Date Bennett De MD [address] [place] [address] [place] [id number] PCP - General Family Medicine 10/22/23 documented as of this encounter
--- OUTSIDE RECORDS SUMMARY | 2023-11-27 07:43 | External Medical Summary | Summary of Care ---
Author Name Unknown Organization [facility] Address [address] [place] [address] Phone [phone] Care Team Providers Care Salvage Cutter Name Role Phone Unavailable Primary Care Provider Unavailabl e Reason for Visit * Reason Onset Date Comments Medication Refill 10/09/2023 Encounter Details Date Type Department Care Team (Late st Contact Info) Description 10/09/2023 Refill Cardiology [facility] [address] [place] [address] Osbaldo Bardales MD [address] [place] [address] Peptic ulcer; History of peptic ulcer disease Allergies No known active allergiesdocumented as of this encounter (statuses as of 10/09/2023) Medications Medication Sig Dispensed Refills Start Date [...] A DAY 360 Tablet 3 10/09/2023 Active Sucralfate 1 GM Oral Tablet (Carafate)Indicati ons:Peptic ulcer,History of peptic ulcer disease TAKE 1 TABLET BY MOUTH FOUR TIMES A DAY 360 Tablet 3 03/03/2023 10/09/2023 Discontinued (Refill) documented as of this encounter (statuses as of 10/09/2023) Active Problems Problem Noted Date Diagnosed Date [...] Directive brochure given to patient. LOC PRIM [id number] 03/21/2004 History of peptic ulcer disease Overview: ICD-10 update of inactive term Primary hypertension Reflux esophagitis Bilateral renal cysts Degenerative arthritis of left knee Stage 3a chronic kidney disease documented as of this encounter (statuses as of 10/09/2023) Resolved Problems Problem Noted Date Diagnosed Date [...] 11/20/2017 Overview: CRP 4.77 Mixed dyslipidemia 06/02/2008 9 Overview: Per Lipid Taxonomy. CHOL 206, HDL 46, LDL 130, TRIG 206 BENIGN NEOPLASM LG BOWEL Arthritis, rheumatoid 2015 documented as of this encounter (statuses as of 10/09/2023) Immunizations Name Administration Dates Next Due COVID-19 [...] on file documented as of this encounter Miscellaneous Notes * Telephone Encounter - Flaquito Chan LPN - 10/09/2023 10:35 AM EDTPending Prescriptions: Disp Refills Sucralfate 1 GM Oral Tablet (Carafate) 360 Ta*3 Sig: TAKE 1 TABLET BY MOUTH FOUR TIMES A DAY * Telephone Encounter - Socorro Cardenas OSA - 10/09/2023 10:31 AM EDT Patient is up to date for office visits. Pending Prescriptions: Disp Refills Sucralfate 1 GM Oral Tablet (Carafate) 360 Ta*3 Sig: TAKE 1 TABLET BY MOUTH FOUR TIMES A DAY Last Visit: Visit date not found (in office), Visit date not found (telemedicine) Next Visit: Visit date not found If no future appointments scheduled, and last appointment is greater than a year ago, please schedule patient for a follow-up appointment Last date the medication was ordered: 03/03/2023 Pharmacy: [id number] [id number] [facility] Is this request for a controlled substance?No it is not controlled. Urine Drug Screen:No results found for this or any previous visit. Patient Phone Numbers Labs: Lab Results Component Value Date/Time CREAT 1.4 (H) 12/26/2022 10:42 AM CREAT 1.3 (H) 11/04/2019 05:12 PM CREAT 0.9 08/27/1996 04:30 PM POTASSIUM 4.4 12/26/2022 10:42 AM POTASSIUM 4.4 11/04/2019 05:12 PM POTASSIUM 4.0 08/27/1996 04:30 PM TSH 3.25 08/27/1996 04:30 PM LDLCALC 79 12/26/2021 10:12 AM LDLCALC 92 11/04/2019 05:12 PM LDLDIRECT 91 12/26/2022 10:42 AM LDLDIRECT NOT APPLICABLE 11/04/2019 05:12 PM ALT 22 12/26/2022 10:42 AM ALT 35 11/22/2017 08:54 AM ALT 51 08/27/1996 04:30 PM * Telephone Encounter - Jeanne Bustamante, behavioral psychologist - 10/09/2023 10:27 AM EDT Pt calling regarding medication prescribed by a Specialist. Transferred to Specialty Call Center. Thank you, Jeanne Bustamante Twisting Press Operator [facility] (Formerly [facility]) 10/09/2023,10:27 AM documented in this encounter Plan of Treatment Upcoming Encounters Date Type Department Care Team (Late st Contact Info) Description 10/22/2023 10:00 AM EDT Office Visit Family Medicine [address] [place] [id number] Beverly Edward PA-C [address] [place] [address] [place] [phone] Scheduled Procedures Name Priority Associated Diagnoses Date/Ti me COLONOSCOPY FLEXIBLE PROXIMA L DIAGNOSTIC Recall Special screening for malignant neoplasms, colon Health Maintenance Due Date Last Done Comments Zoster Vaccines (1 of 2) 1995 Pneumococcal Vaccine: 65+ Years (1 of 1 - PCV) 2010 Depression Screening 03/01/2021 03/01/2020 COVID-19 Vaccine ( season) 2023 05/08/2021, 08/29/2020, 08/01/2020 GFR 06/28/2023 12/26/2022, 01/09, 12/26/2021, Additional history exists Albumin/Creatinine Ratio 12/27/2023 023, 11/04/2019, 11/22/2017 CKD HGB USE SMARTSET [id number] 12/27/202312/26, 12/26/2021, 11/04/2019, Additional history exists CKD PHOS USE SMARTSET [id number] 12/27/202312/08, 12/26/2021, 11/04/2019 Influenza Vaccine (FLU shot) (Season Ended) 2024 04/26/2022 DTaP,Tdap,and Td Vaccines (2 - Td or [...] as of this encounter Visit Diagnoses Diagnosis Peptic ulcer Peptic ulcer, unspecified site, unspecified as acute or chronic, without mention of hemorrhage, perforation, or obstruction History of peptic ulcer disease Personal history of peptic ulcer disease documented in this encounter
--- OUTSIDE RECORDS SUMMARY | 2023-11-27 07:43 | External Medical Summary | Summary of Care ---
Author Name Unknown Organization [facility] Address [address] [place] [address] Phone [phone] Care Team Providers Care Freelance Copywriter Name Role Phone Steve Meade MD Primary Care Provider [phone] Reason for Visit * Reason Onset Date Comments Health Maintenance 08/21/2023 Encounter Details Date Type Department Care Team (Late st Contact Info) Description 08/21/2023 Telephone Family Medicine [address] [phone] Steve Meade MD [address] [place] [id number] Health Maintenance Allergies No known active allergiesdocumented as of this encounter (statuses as of 08/21/2023) Medications Medication Sig Dispensed Refills Start Date End Date Status Lovastatin 20 MG Oral Tablet (Mevacor)Indications: Dyslipidemia, goal LDL below 130 Take 1 Tablet by mouth at bedtime. 90 Tablet 3 10/15/2022 Active Lisinopril 40 MG Oral TabletIndications:Anne brunilda hypertension TAKE 1 TABLET EVERY MORNING 90 Tablet 3 10/15/2022 Active Sucralfate 1 GM Oral Tablet (Carafate)Indications :Peptic ulcer,History of peptic ulcer disease TAKE 1 TABLET BY MOUTH FOUR TIMES A DAY 360 Tablet 3 03/03/2023 Active Fenofibrate 145 MG Oral Tablet (Tricor) Take 1 Tablet by mouth in the morning. 90 Tablet 1 01/28/2023 Active Meloxicam 15 MG Oral Tablet Take 1 Tablet by mouth in the morning. 0 01/23/2023 Active amLODIPine Besylate 5 MG Oral Tablet (Norvasc)Indications: Hypertensive kidney disease with stage 3b chronic kidney disease (HCC) Take 1 Tablet by mouth in the morning. 90 Tablet 3 03/20/2023 Active Omeprazole 20 MG Oral Capsule Delayed Release (PriLOSEC)Indications :Gastroesophageal reflux disease with esophagitis without hemorrhage,History of peptic ulcer disease TAKE 1 CAPSULE EVERY MORNING 90 Capsule 1 05/01/2023 Active documented as of this encounter (statuses as of 08/21/2023) Active Problems Problem Noted Date Diagnosed Date [...] Directive brochure given to patient. LOC PRIM [id number] 03/21/2004 History of peptic ulcer disease Overview: ICD-10 update of inactive term Primary hypertension Reflux esophagitis Bilateral renal cysts Degenerative arthritis of left knee Stage 3a chronic kidney disease documented as of this encounter (statuses as of 08/21/2023) Resolved Problems Problem Noted Date Diagnosed Date [...] as of this encounter (statuses as of 08/21/2023) Immunizations Name Administration Dates Next Due COVID-19 [...] encounter Miscellaneous Notes * Telephone Encounter - Shima Wilson LPN - 08/21/2023 11:15 AM EDT Care Gaps Comprehensive Care Outreach Last Office/Telemedicine Visit: 02/25/2023 (in office), Visit date not found (telemedicine) Next Office Visit: Visit date not found Hemoglobin AIC Results: No results found for: "HEMOGLOBIN A1C" BP Readings from Last 1 Encounters: 03/04/23 160/95 Reviewed Health Maintenance below: Health Maintenance Topic Date Due Zoster Vaccines (1 of 2) Never done Pneumococcal Vaccine: 65+ Years (1 of 1 - PCV) Never done Depression Screening 03/01/2021 Influenza Vaccine (FLU shot) (1) 02/08/2023 COVID-19 Vaccine ( - season) 2023 GFR 06/28/2023 DTaP,Tdap,and Td Vaccines (2 - Td or Tdap) 06/10/2024 (Originally 06/04/2017) Albumin/Creatinine Ratio 12/27/2023 CKD HGB USE SMARTSET 21771 12/27/2023 CKD PHOS USE SMARTSET 09924 12/27/2023 Patient is in [place] until october.Will call when he gets home Care Gap Outreach Action Taken: Spoke to patient documented in this encounter Plan of Treatment Scheduled Procedures Name Priority Associated Diagnoses Date/Ti me COLONOSCOPY FLEXIBLE PROXIMA L DIAGNOSTIC Recall Special screening for malignant neoplasms, colon Health Maintenance Due Date Last Done Comments Zoster Vaccines (1 of 2) 1995 Pneumococcal Vaccine: 65+ Years (1 of 1 - PCV) 2010 Depression Screening 03/01/2021 03/01/2020 COVID-19 Vaccine ( - season) 2023 05/08/2021, 08/29/2020, 08/01/2020 Influenza Vaccine (FLU shot) (#1) 2023 04/26/2022 GFR 06/28/2023 12/26/2022, 0810/2021, 12/26/2021, Additional history exists Albumin/Creatinine Ratio 12/27/2023 023, 11/04/2019, 11/22/2017 CKD HGB USE SMARTSET 76396 12/27/202312/26, 12/26/2021, 11/04/2019, Additional history exists CKD PHOS USE SMARTSET 97162 12/27/202312/08, 12/26/2021, 11/04/2019 DTaP,Tdap,and Td Vaccines (2 - Td or [...] Not on filedocumented as of this encounter Care Teams Freelance Copywriter Relationship Specialty Start Date End Date Steve Meade MD [address] [place] [address] SCOUT Uribe [id number] PCP - General Family Medicine 11/20/18 documented as of this encounter
[2023-11-27] MEDS: MULTIVITAMIN TAB PO SCH (08:00)
[2023-11-27] MEDS: LOVASTATIN 20 MG TAB PO SCH (08:00)
[2023-11-27] MEDS: FOLIC ACID 1 MG TAB PO SCH (08:00)
[2023-11-27 08:02] LABS: BUN Creatinine Ratio 17.4 (10-20); Calcium 8.2 mg/dl (8.6-10.3); Creatinine Clr Calc Pharmacy 53.8 ml/min; Est GFR (African American) 70.3 ml/min; Est GFR (Non-African American) 60.6 ml/min; Potassium 3.7 mmol/L (3.5-5.1)
[2023-11-27] MEDS ORDERED: NON-FORMULARY MEDICATION (Multivitamin Tablet) PO SCH (09:00)
[2023-11-27] MEDS: PIPERACILLIN/TAZOBACTAM 4.5 GM in DEXTROSE 5% MINI-B 100 ML IV SCH (09:17)
[2023-11-27] MEDS: PIPERACILLIN/TAZOBACTAM 4.5 GM/100ML D5W IV ONE (09:18)
--- NOTE | 2023-11-27 09:56 | Gastrointestinal Consultation ---
Date of Consultation November 27, 2023 Assessment & Plan (1) Rectal bleedin78 year old male with history of chronic diastolic heart failure w/ EF 60 to 65%, TTE 2023), aortic stenosis status post TAVR (07/2023, [place], [place]), hypertension, pulmonary hypertension, history PUD/GERD, history traumatic subdural hematoma, meningioma, urolithiasis, diverticulosis, rheumatoid arthritis, daily alcohol intake, past tobacco abuse admitted with BRBPR, onset Saturday, imaging with severe diverticulosis. Similar presentation in August in [place] at which time he underwent EGD/Colonoscopy with suspected diverticular hemorrhage. He had remained hemoconically stable HGB 11.1 w/ normal BUN. DDX discussed: suspect lower GI bleeding, diverticular vs other. NPO Trend H&H Monitor and document GI output Transfuse PRN Hold ASA, antiplatelet for now May continue IV PPI for 48 hours then if remains clinically stable convert to PO Conservative management for now Please update GI in the event of any change in his clinical picture Will discuss diagnostic endoscopic evaluation with my attending. Thank you for allowing us to participate in the care of this patient. Please call with any acute changes, questions or concerns. Please see addendum below with additional recommendation from my supervising physician. I spent a total of 65 minutes on the date of service in review of patient's record, and previously obtained information in person and appropriate medical visit, discussion and education of plan, with patient and/or caregiver, placing orders for tests/referral/procedures as medically necessary and documentation of pertinent clinical information in patient's medical records for their visit today. Supervising Physician Co-Signing Physician Notes I examined the patient and reviewed patient's chart , laboratory data and imaging studies. I agree with with assessment and plan of care as suggested by advanced practice provider. Recurrent diverticular bleeding in the setting of chronic antiplatelet therapy with Plavix. Bleeding appears to be mild. Similar symptoms in August 2023. At that time EGD was negative and colonoscopy showed diverticula without bleeding. The patient has ongoing bleeding with passage of bright red blood and clots. The patient will be prepped for colonoscopy for tomorrow. I recommend to discontinue Plavix if okay with cardiology. Mild thickening of the sigmoid wall seen on the CT scan. Clinically the patient does not have acute colitis. He has no fever, no leukocytosis and his abdominal examination is normal. I suggest to discontinue intravenous antibiotics. History of Present Illness Reason for Consultation: GI bleed Attending Physician: Rodger De La Fuente MD History of Present Illness 78 year old male with history of chronic diastolic heart failure w/ EF 60 to 65%, TTE 2023), aortic stenosis status post TAVR (07/2023, [place], [place]), hypertension, pulmonary hypertension, history PUD/GERD, history traumatic subdural hematoma, meningioma, urolithiasis, diverticulosis, rheumatoid arthritis, daily alcohol intake, past tobacco abuse who presented to the hospital for evaluation of rectal bleeding. GI was asked to evaluate. Pt was seen and evaluated, chart reviewed. He is a poor historian. He notes he was in his typical state of healht Saturday. Pain free, moving regular, brown stools. Saturday, he woke up and noted he had some BRBPR in his stool. This was coating a formed brown BM. Suggests he had 2/3 additional BMs which were all mixed with fresh BRB. Denies any black, tarry stools. Denies abd pain. No nausea, vomiting, GERD or dysphaia. He endorses that after his TAVR in [place] he was admitted for obscure GI bleeding. At that time he underwent an EGD/Colonoscopy around August 2023. I do not have access to these reports but he endorses being told he had a diverticular bleeding. He is on ASA, Plavix HGB 13.2 --> 11.6 --> 11.1 INR 1 BUN 20 + fecal occult Negative stool culture CTAP 2023: 1. There is severe diverticulosis of the colon, greatest involving the left and sigmoid colon. No focal diverticulitis is seen. There is mild wall edema involving the sigmoid colon suggesting colitis. There is a small amount of fluid in the rectum. No pneumoperitoneum, free fluid, or abscess is seen. The appendix is normal. Allergies Allergy/AdvReac Type Severity Reaction Status Date / Time No Known Allergies Allergy Verified 11/26/23 22:46 Home Medications Medication Instructions Recorded Confirmed Type lisinopril 40 mg tablet 40 mg PO QAM 03/05/22 11/26/23 History lovastatin 20 mg tablet,extended 20 mg PO QAM 03/05/22 11/26/23 History release 24 hr aspirin 81 mg tablet,delayed 81 mg PO DAILY 11/26/23 11/26/23 History release clopidogrel 75 mg tablet 75 mg PO QAM 11/26/23 11/26/23 History multivitamin 1 tab PO DAILY 11/26/23 11/26/23 History omega-3 fatty acids 1,000 mg 1,000 mg PO DAILY 11/26/23 11/26/23 History capsule pantoprazole 40 mg tablet,delayed 40 mg PO QAM 11/26/23 11/26/23 History release sucralfate 1 gram tablet 1 g PO QID PRN 11/26/23 11/26/23 History HEARTBURN/INDIGESTION Patient History Medical History Bilateral renal cysts BPH (benign prostatic hyperplasia) GERD (gastroesophageal reflux disease) History of bleeding ulcers 15 yrs ago History of kidney stones HLD (hyperlipidemia) HTN (hypertension) Nephrolithiasis Renal insufficiency Subdural hematoma 2016 > unknown cause, [facility], drained, no further issues Surgical History History of colonoscopy History of cystoscopy with stent History of esophagogastroduodenoscopy (EGD) History of tonsillectomy History of total hip arthroplasty right History of total knee replacement bilat Hx of removal of cyst "from brain" benign, removed approx 2 yrs ago Family History Mother Diabetes Brother Diabetes Social History Smoking Status: Former smoker Second Hand Exposure: No; Do You Dip or Chew Tobacco: No; Hx Alcohol Use: Yes Alcohol type: beer Hx Substance Use: No Preferred Language: Lebanese Communication Ability: Effective Operater Required: No Beliefs That Will Affect Care: None Current Living Situation: Alone Current Living Situation Comment: with dog (Snoop) in [facility], [address] Other Information That Helps Us Care for You: No Feels Safe at Home: Yes Safety Concerns: Feels Safe At This Time Assistive Devices: Denture - Upper and Glasses Review of Systems Review of Systems: All other findings negative except as noted in HPI. Physical Exam Constitutional: WD/WN, vitals as above Respiratory: normal respiratory effort, lungs clear to auscultation Cardiovascular: Rate/Rhythm: regular rate and regular rhythm Gastrointestinal (Abdomen): normal bowel sounds, soft, nontender, no hepatosplenomegaly Skin: no rashes, warm and dry Results & Data Vital Signs (Past 12 Hours) Vital Signs Temp Pulse Pulse Resp BP BP Pulse Ox 11/27/23 07:29 67 11/27/23 07:00 65 18 134/78 96 11/27/23 04:00 67 16 132/75 94 11/27/23 03:03 68 16 165/98 H 96 11/27/23 02:25 71 16 145/88 H 98 11/27/23 02:14 67 11/27/23 01:56 11/27/23 01:40 11/27/23 01:00 11/26/23 23:50 71 21 95 11/26/23 23:42 70 19 96 11/26/23 23:36 72 23 96 11/26/23 23:34 159/83 H 11/26/23 23:09 76 21 11/26/23 23:06 73 23 11/26/23 22:39 97 11/26/23 22:31 78 11/26/23 22:30 88 18 11/26/23 22:30 161/86 H 11/26/23 22:19 36.8 C 83 18 196/103 H 96 Pulse Ox O2 Del Method O2 Del Method 11/27/23 07:29 11/27/23 07:00 Room Air 11/27/23 04:00 Room Air 11/27/23 03:03 Room Air 11/27/23 02:25 Room Air 11/27/23 02:14 11/27/23 01:56 Room Air 11/27/23 01:40 94 Room Air 11/27/23 01:00 Room Air 11/26/23 23:50 11/26/23 23:42 11/26/23 23:36 11/26/23 23:34 11/26/23 23:09 11/26/23 23:06 11/26/23 22:39 Room Air 11/26/23 22:31 11/26/23 22:30 11/26/23 22:30 11/26/23 22:19 Room Air Laboratory Results 11/27/23 11/27/23 11/27/23 Range/Units Unknown 07:02 01:08 WBC 6.47 (4.8-10.8) K/ul RBC 3.78 L (4.70-6.10) M/uL Hgb 11.1 L 11.6 L (14.0-18.0) g/dl POC Hgb (14.0-18.0) g/dl Hct 33.5 L 35.8 L (42.0-52.0) % POC Hct (42-52) % MCV 88.6 (80.0-100.0) fL MCH 29.4 (25.0-34.0) pg MCHC 33.1 (32.0-36.0) g/dL RDW Std Deviation 46.5 H (36.4-46.3) fL RDW Coeff of Mela 14.3 (11.5-14.5) % Plt Count 146 (130-400) K/uL MPV 11.1 (9.4-12.4) fL Immature Gran % (Auto) 0.2 % Neut % (Auto) 67.4 % Lymph % (Auto) 17.9 % Dunn % (Auto) 10.8 % Eos % (Auto) 2.9 % Baso % (Auto) 0.8 % Neut # (Auto) 4.36 (1.40-6.50) K/uL Lymph # (Auto) 1.16 L (1.20-3.40) K/uL Dunn # (Auto) 0.70 H (0.11-0.59) K/uL Eos # (Auto) 0.19 (0.00-0.50) K/uL Baso # (Auto) 0.05 (0.00-0.20) K/uL Immature Gran # (Auto) 0.01 (0.01-0.20) K/uL PT (9.0-12.0) Seconds INR (0.9-1.1) APTT (21-31) Seconds PTT Ratio POC Sodium (135-144) mmol/L Sodium 137 (136-145) mmol/L POC Potassium (3.3-5.0) mmol/L Potassium 3.7 (3.5-5.1) mmol/L POC Chloride (101-112) mmol/L Chloride 106 (98-107) mmol/L Carbon Dioxide 26 (21-32) mmol/L POC Total CO2 (24-31) mmol/L Anion Gap 5 (3-11) POC Anion Gap (16-25) mmol/L POC BUN (7-18) mg/dl BUN 20 (6-23) mg/dl Creatinine 1.15 (0.6-1.4) mg/dl POC Creatinine (0.6-1.3) mg/dl Est Cr Clr Drug Dosing 53.8 ml/min Est GFR ( Amer) 70.3 ml/min Est GFR (Non-Af Amer) 60.6 ml/min BUN/Creatinine Ratio 17.4 (10-20) Glucose 143 H (70-99(Fasting)) mg/dl POC Glucose (other) (70-99) mg/dl Calcium 8.2 L (8.6-10.3) mg/dl POC Ioniz Calcium Eligio (1.12-1.32) mmol/l Magnesium 1.9 (1.7-2.4) mg/dl Total Bilirubin (0.2-1.0) mg/dl AST (13-39) U/L ALT (7-52) U/L Alkaline Phosphatase (34-104) U/L Troponin I High Sens (0-20) pg/ml Total Protein (6.0-8.3) gm/dl Albumin (3.4-5.0) gm/dl Globulin (2.5-4.0) gm/dl Albumin/Globulin Ratio (0.9-2) POC Stool Occult Blood (Negative) Stl C. cayetanensis PCR Not Detected (NotDetected) Stool Rotavirus A PCR Not Detected (NotDetected) Stl Adenov F 40/41 PCR Not Detected (NotDetected) Stool Astrovirus (PCR) Not Detected (NotDetected) Stool Campylobacter PCR Not Detected (NotDetected) Stl C. diff Tox B Gene Negative Cdiff Gene (Neg) Stool Cryptosporidium PCR Not Detected (NotDetected) Stl E.coli Shiga Tox PCR Not Detected (NotDetected) Stl Enterotoxigenic E PCR Not Detected (NotDetected) Stool EPEC (PCR) Not Detected (NotDetected) Stool EAEC (PCR) Not Detected (NotDetected) Stl E. histolytica PCR Not Detected (NotDetected) Stool Giardia Lamblia PCR Not Detected (NotDetected) Stool Salmonella PCR Not Detected (NotDetected) Stool Sapovirus (PCR) Not Detected (NotDetected) Stl P. shigelloides PCR Not Detected (NotDetected) Stl Shigella/EIEC PCR Not Detected (NotDetected) St Y.enterocolitica PCR Not Detected (NotDetected) Stool Vibrio (PCR) Not Detected (NotDetected) Stl Vibrio cholerae PCR Not Detected (NotDetected) Stl Norovirus GI/GII PCR Not Detected (NotDetected) Ethyl Alcohol mg/dL < 10.0 (<10.0) mg/dl Blood Type Antibody Screen 11/26/23 11/26/23 11/26/23 Range/Units 23:19 23:06 22:47 WBC (4.8-10.8) K/ul RBC (4.70-6.10) M/uL Hgb (14.0-18.0) g/dl POC Hgb 12.9 L (14.0-18.0) g/dl Hct (42.0-52.0) % POC Hct 38 L (42-52) % MCV (80.0-100.0) fL MCH (25.0-34.0) pg MCHC (32.0-36.0) g/dL RDW Std Deviation (36.4-46.3) fL RDW Coeff of Mela (11.5-14.5) % Plt Count (130-400) K/uL MPV (9.4-12.4) fL Immature Gran % (Auto) % Neut % (Auto) % Lymph % (Auto) % Dunn % (Auto) % Eos % (Auto) % Baso % (Auto) % Neut # (Auto) (1.40-6.50) K/uL Lymph # (Auto) (1.20-3.40) K/uL Dunn # (Auto) (0.11-0.59) K/uL Eos # (Auto) (0.00-0.50) K/uL Baso # (Auto) (0.00-0.20) K/uL Immature Gran # (Auto) (0.01-0.20) K/uL PT (9.0-12.0) Seconds INR (0.9-1.1) APTT (21-31) Seconds PTT Ratio POC Sodium 138 (135-144) mmol/L Sodium (136-145) mmol/L POC Potassium 3.6 (3.3-5.0) mmol/L Potassium (3.5-5.1) mmol/L POC Chloride 104 (101-112) mmol/L Chloride (98-107) mmol/L Carbon Dioxide (21-32) mmol/L POC Total CO2 22 L (24-31) mmol/L Anion Gap (3-11) POC Anion Gap 17.0 (16-25) mmol/L POC BUN 19 H (7-18) mg/dl BUN (6-23) mg/dl Creatinine (0.6-1.4) mg/dl POC Creatinine 1.4 H (0.6-1.3) mg/dl Est Cr Clr Drug Dosing ml/min Est GFR ( Amer) ml/min Est GFR (Non-Af Amer) ml/min BUN/Creatinine Ratio (10-20) Glucose (70-99(Fasting)) mg/dl POC Glucose (other) 108 H (70-99) mg/dl Calcium (8.6-10.3) mg/dl POC Ioniz Calcium Eligio 1.14 (1.12-1.32) mmol/l Magnesium (1.7-2.4) mg/dl Total Bilirubin (0.2-1.0) mg/dl AST (13-39) U/L ALT (7-52) U/L Alkaline Phosphatase (34-104) U/L Troponin I High Sens (0-20) pg/ml Total Protein (6.0-8.3) gm/dl Albumin (3.4-5.0) gm/dl Globulin (2.5-4.0) gm/dl Albumin/Globulin Ratio (0.9-2) POC Stool Occult Blood Positive A (Negative) Stl C. cayetanensis PCR (NotDetected) Stool Rotavirus A PCR (NotDetected) Stl Adenov F 40/41 PCR (NotDetected) Stool Astrovirus (PCR) (NotDetected) Stool Campylobacter PCR (NotDetected) Stl C. diff Tox B Gene (Neg) Stool Cryptosporidium PCR (NotDetected) Stl E.coli Shiga Tox PCR (NotDetected) Stl Enterotoxigenic E PCR (NotDetected) Stool EPEC (PCR) (NotDetected) Stool EAEC (PCR) (NotDetected) Stl E. histolytica PCR (NotDetected) Stool Giardia Lamblia PCR (NotDetected) Stool Salmonella PCR (NotDetected) Stool Sapovirus (PCR) (NotDetected) Stl P. shigelloides PCR (NotDetected) Stl Shigella/EIEC PCR (NotDetected) St Y.enterocolitica PCR (NotDetected) Stool Vibrio (PCR) (NotDetected) Stl Vibrio cholerae PCR (NotDetected) Stl Norovirus GI/GII PCR (NotDetected) Ethyl Alcohol mg/dL (<10.0) mg/dl Blood Type B Positive Antibody Screen NEGATIVE 11/26/23 Range/Units 22:35 WBC 7.84 (4.8-10.8) K/ul RBC 4.54 L (4.70-6.10) M/uL Hgb 13.2 L (14.0-18.0) g/dl POC Hgb (14.0-18.0) g/dl Hct 39.8 L (42.0-52.0) % POC Hct (42-52) % MCV 87.7 (80.0-100.0) fL MCH 29.1 (25.0-34.0) pg MCHC 33.2 (32.0-36.0) g/dL RDW Std Deviation 46.4 H (36.4-46.3) fL RDW Coeff of Mela 14.5 (11.5-14.5) % Plt Count 174 (130-400) K/uL MPV 11.3 (9.4-12.4) fL Immature Gran % (Auto) 0.3 % Neut % (Auto) 64.0 % Lymph % (Auto) 20.8 % Dunn % (Auto) 11.6 % Eos % (Auto) 2.7 % Baso % (Auto) 0.6 % Neut # (Auto) 5.02 (1.40-6.50) K/uL Lymph # (Auto) 1.63 (1.20-3.40) K/uL Dunn # (Auto) 0.91 H (0.11-0.59) K/uL Eos # (Auto) 0.21 (0.00-0.50) K/uL Baso # (Auto) 0.05 (0.00-0.20) K/uL Immature Gran # (Auto) 0.02 (0.01-0.20) K/uL PT 11.3 (9.0-12.0) Seconds INR 1.0 (0.9-1.1) APTT 29 (21-31) Seconds PTT Ratio 1.1 POC Sodium (135-144) mmol/L Sodium 137 (136-145) mmol/L POC Potassium (3.3-5.0) mmol/L Potassium 3.5 (3.5-5.1) mmol/L POC Chloride (101-112) mmol/L Chloride 105 (98-107) mmol/L Carbon Dioxide 22 (21-32) mmol/L POC Total CO2 (24-31) mmol/L Anion Gap 10 (3-11) POC Anion Gap (16-25) mmol/L POC BUN (7-18) mg/dl BUN 22 (6-23) mg/dl Creatinine 1.25 (0.6-1.4) mg/dl POC Creatinine (0.6-1.3) mg/dl Est Cr Clr Drug Dosing 49.5 ml/min Est GFR ( Amer) 63.5 ml/min Est GFR (Non-Af Amer) 54.8 ml/min BUN/Creatinine Ratio 17.6 (10-20) Glucose 110 H (70-99(Fasting)) mg/dl POC Glucose (other) (70-99) mg/dl Calcium 9.0 (8.6-10.3) mg/dl POC Ioniz Calcium Eligio (1.12-1.32) mmol/l Magnesium 1.6 L (1.7-2.4) mg/dl Total Bilirubin 0.7 (0.2-1.0) mg/dl AST 18 (13-39) U/L ALT 12 (7-52) U/L Alkaline Phosphatase 44 (34-104) U/L Troponin I High Sens 7.1 (0-20) pg/ml Total Protein 6.8 (6.0-8.3) gm/dl Albumin 4.1 (3.4-5.0) gm/dl Globulin 2.7 (2.5-4.0) gm/dl Albumin/Globulin Ratio 1.5 (0.9-2) POC Stool Occult Blood (Negative) Stl C. cayetanensis PCR (NotDetected) Stool Rotavirus A PCR (NotDetected) Stl Adenov F 40/41 PCR (NotDetected) Stool Astrovirus (PCR) (NotDetected) Stool Campylobacter PCR (NotDetected) Stl C. diff Tox B Gene (Neg) Stool Cryptosporidium PCR (NotDetected) Stl E.coli Shiga Tox PCR (NotDetected) Stl Enterotoxigenic E PCR (NotDetected) Stool EPEC (PCR) (NotDetected) Stool EAEC (PCR) (NotDetected) Stl E. histolytica PCR (NotDetected) Stool Giardia Lamblia PCR (NotDetected) Stool Salmonella PCR (NotDetected) Stool Sapovirus (PCR) (NotDetected) Stl P. shigelloides PCR (NotDetected) Stl Shigella/EIEC PCR (NotDetected) St Y.enterocolitica PCR (NotDetected) Stool Vibrio (PCR) (NotDetected) Stl Vibrio cholerae PCR (NotDetected) Stl Norovirus GI/GII PCR (NotDetected) Ethyl Alcohol mg/dL (<10.0) mg/dl Blood Type Antibody Screen PG Care Time/CCT Total # of Minutes Spent Total Time Spent with Patient: Total time spent is greater than 50% in coordination of care (as documented) at patient's floor/unit and/or counseling patient: Coding Level of Care Code 48751 INT INP/OBS CARE 3/75MIN Diagnoses Rectal bleeding K62.5
[2023-11-27] MEDS: ACETAMINOPHEN 325 MG TAB PO PRN (10:44)
[2023-11-27 13:21] LABS: Hematocrit (blood only) 31.6 % (42.0-52.0); Hemoglobin 10.5 g/dl (14.0-18.0)
[2023-11-27] MEDS ORDERED: LAVAGE SOLUTION 4000ML PO SCH (14:00)
--- NOTE | 2023-11-27 16:23 | Electrocardiogram Report ---
Test Reason : Blood Pressure : / mmHG Vent. Rate : 076 BPM Atrial Rate : 076 BPM P-R Int : 202 ms QRS Dur : 144 ms QT Int : 430 ms P-R-T Axes : 032 -76 011 degrees QTc Int : 483 ms Normal sinus rhythm Right bundle branch block Left anterior fascicular block Bifascicular block Abnormal ECG When compared with ECG of 28-FEB-2023 07:45, T wave inversion less evident in Inferior leads T wave inversion less evident in Anterolateral leads Confirmed by Deangelo Rodríguez ([id number]) on 11/27/2023 4:22:39 PM Referred By: REFERRED SELF Confirmed By:Deangelo Rodríguez
[2023-11-27] MEDS: LAVAGE SOLUTION 4000ML PO SCH (16:39)
[2023-11-27] MEDS ORDERED: Nursing to Pharmacy Communication SCH (16:45)
[2023-11-27 19:44] LABS: Hemoglobin 10.9 g/dl (14.0-18.0)
[2023-11-28 07:05] LABS: Hematocrit (blood only) 26.6 % (42.0-52.0); Hemoglobin 8.9 g/dl (14.0-18.0); Mean Corpuscular Hemoglobin 29.5 pg (25.0-34.0); Mean Corpuscular Hgb Conc 33.5 g/dL (32.0-36.0); Mean Corpuscular Volume 88.1 fL (80.0-100.0); Mean Platelet Volume 11.3 fL (9.4-12.4); Platelet Count 137 K/uL (130-400); RDW Coefficient of Variation 14.3 % (11.5-14.5); Red Blood Count 3.02 M/uL (4.70-6.10); White Blood Count 5.99 K/ul (4.8-10.8)
[2023-11-28 07:28] LABS: BUN Creatinine Ratio 9.6 (10-20); Calcium 8.1 mg/dl (8.6-10.3); Creatinine Clr Calc Pharmacy 49.4 ml/min; Est GFR (African American) 63.5 ml/min; Est GFR (Non-African American) 54.8 ml/min; Magnesium 1.8 mg/dl (1.7-2.4); Phosphorus 3.1 mg/dl (2.5-4.9); Potassium 3.7 mmol/L (3.5-5.1)
[2023-11-28] MEDS: THIAMINE HCL 100 MG TAB PO SCH (07:57)
[2023-11-28] MEDS: lisinopril 40 MG TAB PO SCH (07:57)
[2023-11-28] MEDS ORDERED: SODIUM CHLORIDE 0.9% 250 ML IV PRN (08:02)
--- NOTE | 2023-11-28 08:07 | Hospitalist Progress Note ---
Date of Service November 28, 2023 Assessment & Plan (1) GI bleed: Plan: Possible UGIB/LGIB combo history PUD/GERD Colitis on CT IV PPI for possible UGIB Stool workup, Suresh GI consult re: GI bleed - plan for colonoscopy today (pt underwent prep overnight). Mild thickening of the sigmoid wall seen on the CT scan. Clinically the patient does not have acute colitis. He has no fever, no leukocytosis and his abdominal examination is normal. I suggest to discontinue intravenous antibiotics. Appropriate to hold antiplatelet Rx for now given GI bleed Follow H&H - this AM down to 8.9 - plan to transfuse 1 unit of pRBC Chronic conditions: chronic diastolic heart failure (EF 60 to 65%, TTE 2023), patient euvolemic to dry hx aortic stenosis status post Ross AVR (07/2023, [place], [place]) hypertension, slight elevated pulmonary hypertension as per records history traumatic subdural hematoma meningioma status post surgery At risk alcohol intake , SERGIO S at risk protocol, DT precautions Hyperglycemia rule out DM, Check hemoglobin A1c past tobacco abuse DVT prophylaxis. SCDs Re: GI bleed Full code Admission and Anticipated Discharge Date Admission Date: November 27, 2023 Subjective Pt seen in follow up of GI bleed, acute blood loss anemia Plan for colonoscopy today Overnight continued w/ bleed, the last BM he had he reports that bleeding has subsided Denies any abd. pain Denies fever, chills, chest pain, shortness of breath, dizziness Hgb this AM - down to 8.9 - plan to transfuse 1 unit of pRBC Review of Systems Review of Systems: All systems reviewed & are unremarkable except as noted in Subjective Physical Exam Physical Exam: GENERAL: WD/WN elderly M in NAD HEENT: NC/AT, Bespectacled, pale palpebral conjunctivae NECK : Supple, no tenderness CHEST : CTA, no tenderness HEART : RRR, systolic murmur ABDOMEN: Some distention, nontender EXTREMITIES : No LE swelling/tenderness, moves extremities NEUROLOGIC : awake, alert, oriented, speech fluent, answers appropriately, no facial asymmetry, moves extremities SKIN: Pallor, warm Results & Data Results & Data Vital Signs (Past 12 Hours) Vital Signs Temp Pulse Pulse Resp BP Pulse Ox O2 Del Method 11/28/23 07:44 36.8 C 70 18 132/77 97 Room Air 11/28/23 03:26 36.9 C 82 18 125/77 97 Room Air 11/27/23 23:15 36.8 C 77 18 127/69 94 Room Air 11/27/23 22:48 73 Laboratory Results 11/28/23 11/27/23 11/27/23 Range/Units 06:16 19:19 12:52 WBC 5.99 (4.8-10.8) K/ul RBC 3.02 L (4.70-6.10) M/uL Hgb 8.9 L 10.9 L 10.5 L (14.0-18.0) g/dl Hct 26.6 L 33.0 L 31.6 L (42.0-52.0) % MCV 88.1 (80.0-100.0) fL MCH 29.5 (25.0-34.0) pg MCHC 33.5 (32.0-36.0) g/dL RDW Std Deviation 46.0 (36.4-46.3) fL RDW Coeff of Mela 14.3 (11.5-14.5) % Plt Count 137 (130-400) K/uL MPV 11.3 (9.4-12.4) fL Sodium 139 (136-145) mmol/L Potassium 3.7 (3.5-5.1) mmol/L Chloride 106 (98-107) mmol/L Carbon Dioxide 29 (21-32) mmol/L Anion Gap 4 (3-11) BUN 12 (6-23) mg/dl Creatinine 1.25 (0.6-1.4) mg/dl Est Cr Clr Drug Dosing 49.4 ml/min Est GFR ( Amer) 63.5 ml/min Est GFR (Non-Af Amer) 54.8 ml/min BUN/Creatinine Ratio 9.6 L (10-20) Glucose 118 H (70-99(Fasting)) mg/dl Calcium 8.1 L (8.6-10.3) mg/dl Phosphorus 3.1 (2.5-4.9) mg/dl Magnesium 1.8 (1.7-2.4) mg/dl Medications Administered Current Inpatient Medications Acetaminophen (Acetaminophen 325 Mg Tab) 650 mg PO QID PRN PRN Reason: pain/fever Stop: 12/27/23 00:40 Last Admin: 11/27/23 16:42 Dose: 650 mg Folic Acid (Folic Acid 1 Mg Tab) [facility] Stop: 12/27/23 08:59 Last Admin: 11/28/23 07:58 Dose: 1 mg Promethazine HCl 6.25 mg/ (Sodium Chloride) 50.25 mls @ 201 mls/hr IV Q6H PRN PRN Reason: Nausea And Vomiting Stop: 12/27/23 00:40 Lorazepam 1 mg/ Syringe 1 mls @ 2 mls/min IV ONE PRN; Protocol PRN Reason: EtoH Withdrawal AWSS 6-10 Pantoprazole Sodium 40 mg/ (Dextrose) 100 mls @ 20 mls/hr IV Q5H [facility] Stop: 12/27/23 02:59 Last Admin: 11/28/23 06:07 Dose: 8 mg/hr, 20 mls/hr Piperacillin Sod/Tazobactam (Sod 4.5 gm/ Dextrose) 100 mls @ 25 mls/hr IV Q8H [facility]; Protocol Stop: 12/07/23 09:59 Last Infusion: 11/28/23 05:53 Dose: Infused Sodium Chloride (Nss) 250 mls @ 15 mls/hr IV .[id number] PRN PRN Reason: For Transfusion Duration Stop: 11/28/23 18:03 Lisinopril (Lisinopril 40 Mg Tab) 40 mg PO [facility] Stop: 12/28/23 08:59 Last Admin: 11/28/23 07:57 Dose: 40 mg Lovastatin (Lovastatin 20 Mg Tab) 20 mg PO [facility] Stop: 12/27/23 08:59 Last Admin: 11/28/23 07:58 Dose: 20 mg Multivitamins (Multivitamin Tab) [facility] Stop: 12/27/23 08:59 Last Admin: 11/28/23 07:57 Dose: 1 tab Oxycodone HCl (Oxycodone Hcl Ir 5 Mg Tab (Immediate Release)) 5 mg PO Q4H PRN PRN Reason: Pain Stop: 12/11/23 00:40 Thiamine HCl (Thiamine Hcl 100 Mg Tab) [facility] Stop: 12/28/23 08:59 Last Admin: 11/28/23 07:57 Dose: 100 mg
--- NOTE | 2023-11-28 09:15 | Gastroenterology Progress Note ---
Date of Service November 28, 2023 Assessment & Plan (1) Rectal bleeding: Plan: 78 year old male with history of chronic diastolic heart failure w/ EF 60 to 65%, TTE 2023), aortic stenosis status post TAVR (07/2023, [place], [place]), hypertension, pulmonary hypertension, history PUD/GERD, history traumatic subdural hematoma, meningioma, urolithiasis, diverticulosis, rheumatoid arthritis, daily alcohol intake, past tobacco abuse admitted with BRBPR, onset Saturday, imaging with severe diverticulosis. Similar presentation in August in [place] at which time he underwent EGD/Colonoscopy with suspected diverticular hemorrhage. He had remained hemoco nically stable HGB 11.1 w/ normal BUN. He tolerated golytely prep w/ passage of bloody stool at onset. He notes that bleeding resolved and he is now passing yellow/clear BMs. HGB this AM 8.9 w/ normal BUN Please keep NPO until discussed with my attending As bleeding resolved, colonoscopy low yield in identifying a suspected diverticular bleed Trend H&H Monitor and document GI output Transfuse PRN Hold ASA, antiplatelet for now Convert to PO PPI Please update GI in the event of any change in his clinical picture Will discuss diagnostic endoscopic evaluation with my attending. Thank you for allowing us to participate in the care of this patient. Please call with any acute changes, questions or concerns. Please see addendum below with additional recommendation from my supervising physician. I spent a total of 55 minutes on the date of service in review of patient's record, and previously obtained information in person and appropriate medical visit, discussion and education of plan, with patient and/or caregiver, placing orders for tests/referral/procedures as medically necessary and documentation of pertinent clinical information in patient's medical records for their visit today. Admission and Anticipated Discharge Date Admission Date: November 27, 2023 Supervising Physician Co-Signing Physician Notes Ongoing bleeding. For colonoscopy today. Likely bleeding from diverticula. Recommend to discontinue Plavix if okay with cardiology. Subjective pt was seen and evaluated, chart reviewed. Suggests he completed prep Had bloody stools at onset of prep Suggests his most recent BMs have been completely clear or yellow. Last BM around 0800 No abd pain, nausea, vomiting. Review of Systems Review of Systems: All other findings negative except as noted in HPI. Physical Exam Constitutional: WD/WN, vitals as above Respiratory: normal respiratory effort, lungs clear to auscultation Cardiovascular: Rate/Rhythm: regular rate and regular rhythm Gastrointestinal (Abdomen): normal bowel sounds, soft, nontender, no hepatosplenomegaly Results & Data Results & Data Vital Signs (Past 12 Hours) Vital Signs Temp Pulse Pulse Resp BP Pulse Ox O2 Del Method 11/28/23 07:44 36.8 C 70 18 132/77 97 Room Air 11/28/23 03:26 36.9 C 82 18 125/77 97 Room Air 11/27/23 23:15 36.8 C 77 18 127/69 94 Room Air 11/27/23 22:48 73 Laboratory Results 11/28/23 11/27/23 11/27/23 Range/Units 06:16 19:19 12:52 WBC 5.99 (4.8-10.8) K/ul RBC 3.02 L (4.70-6.10) M/uL Hgb 8.9 L 10.9 L 10.5 L (14.0-18.0) g/dl Hct 26.6 L 33.0 L 31.6 L (42.0-52.0) % MCV 88.1 (80.0-100.0) fL MCH 29.5 (25.0-34.0) pg MCHC 33.5 (32.0-36.0) g/dL RDW Std Deviation 46.0 (36.4-46.3) fL RDW Coeff of Mela 14.3 (11.5-14.5) % Plt Count 137 (130-400) K/uL MPV 11.3 (9.4-12.4) fL Sodium 139 (136-145) mmol/L Potassium 3.7 (3.5-5.1) mmol/L Chloride 106 (98-107) mmol/L Carbon Dioxide 29 (21-32) mmol/L Anion Gap 4 (3-11) BUN 12 (6-23) mg/dl Creatinine 1.25 (0.6-1.4) mg/dl Est Cr Clr Drug Dosing 49.4 ml/min Est GFR ( Amer) 63.5 ml/min Est GFR (Non-Af Amer) 54.8 ml/min BUN/Creatinine Ratio 9.6 L (10-20) Glucose 118 H (70-99(Fasting)) mg/dl Calcium 8.1 L (8.6-10.3) mg/dl Phosphorus 3.1 (2.5-4.9) mg/dl Magnesium 1.8 (1.7-2.4) mg/dl Blood Type Recheck Pending PG Care Time/CCT Total # of Minutes Spent Total Time Spent with Patient: Total time spent is greater than 50% in coordination of care (as documented) at patient's floor/unit and/or counseling patient: Coding Level of Care Code 35313 SUB INP/OBS CARE 3/50MIN Diagnoses Rectal bleeding K62.5
--- NOTE | 2023-11-28 12:14 | Anesthesiology Consultation ---
Date of Service November 28, 2023 Assessment & Plan Chart Review Chart Review: Acceptable Risk for Surgery and Patient NOT seen in Pre Admission Testing Consults Requested none ASA ASA3 Proposed Anesthesia Anesthesia Type: MAC Risk / Benefits Reviewed With: PT / POA / Parent / Guardian, Accepts Plan and Informed Consent Obtained History Surgery Operation Date: 11/28/23 17:25 Proposed Procedures p Colonoscopy Dr. Vega - Matthew Vega MD Height/Weight Height: 5 ft 7 in Weight: 80 kg Allergies Allergy/AdvReac Type Severity Reaction Status Date / Time No Known Allergies Allergy Verified 11/26/23 22:46 Medications Home Medications Medication Instructions Recorded Confirmed Last Taken lisinopril 40 mg tablet 40 mg PO QAM 03/05/22 11/26/23 11/26/23 lovastatin 20 mg tablet,extended 20 mg PO QAM 03/05/22 11/26/23 11/26/23 release 24 hr aspirin 81 mg tablet,delayed 81 mg PO DAILY 11/26/23 11/26/23 11/25/23 release clopidogrel 75 mg tablet 75 mg PO QAM 11/26/23 11/26/23 11/26/23 multivitamin 1 tab PO DAILY 11/26/23 11/26/23 11/26/23 omega-3 fatty acids 1,000 mg 1,000 mg PO DAILY 11/26/23 11/26/23 11/26/23 capsule pantoprazole 40 mg tablet,delayed 40 mg PO QAM 11/26/23 11/26/23 11/26/23 release sucralfate 1 gram tablet 1 g PO QID PRN 11/26/23 11/26/23 Unknown HEARTBURN/INDIGESTION Active Medications Generic Name Dose Route Start Last Admin Trade Name Freq PRN Reason Stop Dose Admin Acetaminophen 650 mg 11/27/23 00:41 11/27/23 16:42 Acetaminophen 325 Mg Tab PO 12/27/23 00:40 650 mg QID PRN Administration pain/fever Folic Acid 1 mg 11/27/23 09:00 11/28/23 07:58 Folic Acid 1 Mg Tab PO 12/27/23 08:59 1 mg QAM LIAM Administration Piperacillin Sod/Tazobactam 100 mls @ 25 mls/hr 11/27/23 10:00 11/28/23 09:09 Sod 4.5 gm/ Dextrose IV 12/07/23 09:59 25 mls/hr Q8H LIAM Administration Protocol Lisinopril 40 mg 11/28/23 09:00 11/28/23 07:57 Lisinopril 40 Mg Tab PO 12/28/23 08:59 40 mg QAM LIAM Administration Lovastatin 20 mg 11/27/23 09:00 11/28/23 07:58 Lovastatin 20 Mg Tab PO 12/27/23 08:59 20 mg QAM LIAM Administration Multivitamins 1 tab 11/27/23 09:00 11/28/23 07:57 Multivitamin Tab PO 12/27/23 08:59 1 tab QAM LIAM Administration Thiamine HCl 100 mg 11/28/23 09:00 11/28/23 07:57 Thiamine Hcl 100 Mg Tab PO 12/28/23 08:59 100 mg QAM LIAM Administration NPO Date Last Intake of Fluids: 11/28/23 Time Last Intake of Fluids: 08:00 Last Intake of Fluids Comment: Sip with meds Date Last Intake of Solids: 11/26/23 Time Last Intake of Solids: 17:00 Past Medical History Medical History Bilateral renal cysts BPH (benign prostatic hyperplasia) GERD (gastroesophageal reflux disease) History of bleeding ulcers 15 yrs ago History of kidney stones HLD (hyperlipidemia) HTN (hypertension) Nephrolithiasis Renal insufficiency Subdural hematoma 2016 > unknown cause, [facility], drained, no further issues Exercise / Class Metabolic Activity II 4-5 Yardwork/Stairs/Walk up hill Past Family History Family History Mother Diabetes Brother Diabetes Past Surgical History Surgical History History of colonoscopy History of cystoscopy with stent History of esophagogastroduodenoscopy (EGD) History of tonsillectomy History of total hip arthroplasty right History of total knee replacement bilat Hx of removal of cyst "from brain" benign, removed approx 2 yrs ago Past Anesthesia History No Hx of Anesthesia Complications and No Family Hx of Anesthesia Complications History of PONV No Hx of PONV and No Hx of Motion Sickness Social History Smoking Status: Former smoker Do You Dip or Chew Tobacco: No Hx Alcohol Use: Yes Alcohol type: beer alcohol intake frequency: a few times a week Alcohol Intake Frequency Comment: 1-6 drinks at a time, 3-4 times a week Hx Substance Use: No substance use type: does not use Physical Exam Vital Signs Last Vital Signs Temp 37.0 C 11/28/23 11:41 Pulse 75 11/28/23 11:41 Resp 18 11/28/23 11:41 BP 139/81 11/28/23 11:41 Pulse Ox 97 11/28/23 11:41 O2 Del Method Room Air 11/28/23 10:49 ENMT Mouth: + dentures (upper plate) Thyromental Distance: > or= 3.5 Finger Breadths Mallampati Class: II Neck normal visual inspection Respiratory normal respiratory effort Auscultation: lungs clear to auscultation bilaterally Cardiovascular Rate/Rhythm: regular rate and regular rhythm Psychiatric Orientation: alert Testing Laboratory Results 11/28/23 06:16 11/28/23 06:16 PT 11.3 Seconds (9.0-12.0) 11/26/23 22:35 INR 1.0 (0.9-1.1) 11/26/23 22:35 APTT 29 Seconds (21-31) 11/26/23 22:35 Blood Type B Positive 11/26/23 23:06 Antibody Screen NEGATIVE 11/26/23 23:06
--- NOTE | 2023-11-28 13:04 | GI REPORT ---
[facility] Patient: JAYCOB MORE : 1945 Sex at : Male Age: 78 Years Procedure: Colonoscopy Date: 11/28/2023 Attending Physician: Matthew Vega MD Referring MD: Rodger De La Fuente Md; Steve Meade Indications: - Rectal bleeding Medications: - Monitored Anesthesia Care Complications: - No immediate complications. Estimated Blood Loss: - Estimated blood loss: none. Procedure: - The pediatric colonoscope was introduced through the anus and advanced to the terminal ileum, with identification of the appendiceal orifice and ileocecal valve. - The colonoscopy was performed without difficulty. Findings: - The perianal examination was normal. - Multiple medium-mouthed diverticula were found in the entire colon. - Red blood was found in the distal descending colon and in the proximal sigmoid colon. Small amount of fresh red blood in the distal descending and proximal sigmoid colon. Unable to visualize exact site of bleeding. Bleeding presumed from diverticula. Intervention was not done due to not being able to visualize the exact source of bleeding. Impression: - Diverticulosis in the entire examined colon. - Blood in the distal descending colon and in the proximal sigmoid colon. - Small amount of fresh red blood in the distal descending and proximal sigmoid colon. Unable to visualize exact site of bleeding. - Bleeding presumed from diverticula. - Intervention was not done due to not being able to visualize the exact source of bleeding. - No specimens collected. Recommendation: - Observe patient. Discontinue Plavix. Consultation with interventional radiology if major bleeding. 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 All Rights Reserved. The CPT codes, CCI edits and ICD codes generated are intended as suggestions and were generated based on input data. These codes are preliminary and upon perfect binder feeder offbearer review may be revised to meet current compliance and payer requirements. The provider is responsible for the final determination of appropriate codes, and modifiers. Matthew Vega M.D. This document has been electronically signed. Note Initiated:11/28/2023 Note Completed:11/28/2023 1:03 PM [id number]
--- NOTE | 2023-11-28 13:06 | Communication Note ---
Date of Service: November 28, 2023 Colonoscopy showed numerous diverticula throughout the colon. In the distal descending colon there was a small amount of red blood with minor oozing. Desp ite rinsing and suctioning I was unable to visualize the exact source of oozing. There was no major bleeding, no visible vessel. At this point I would recommend to observe the patient. Discontinue Plavix if okay with cardiology. In case of major rebleeding I would recommend consultation with interventional radiology. The patient will need to be transferred to another facility for that.
--- NOTE | 2023-11-28 13:38 | Anesthesiology Progress Note ---
Date of Service November 28, 2023 Anesthesia Post Procedure Vital Signs Vital Signs: Temp Pulse Pulse Pulse Resp BP BP 11/28/23 13:27 75 16 129/76 11/28/23 13:12 76 82 14 127/79 11/28/23 12:57 82 82 14 159/88 H 11/28/23 11:41 37.0 C 75 18 139/81 11/28/23 10:50 37.0 C 79 18 157/82 H 11/28/23 10:49 37 C 79 18 157/82 H 11/28/23 10:20 37.0 C 81 18 136/78 11/28/23 10:16 65 11/28/23 10:09 36.9 C 78 18 128/76 11/28/23 09:52 36.9 C 91 H 18 135/74 11/28/23 07:44 36.8 C 70 18 132/77 11/28/23 03:26 36.9 C 82 18 125/77 11/27/23 23:15 36.8 C 77 18 127/69 11/27/23 22:48 73 11/27/23 19:43 36.4 C L 84 18 124/75 11/27/23 16:18 73 11/27/23 15:07 37.1 C 72 18 131/73 Pulse Ox O2 Del Method 11/28/23 13:27 97 Room Air 11/28/23 13:12 98 Room Air 11/28/23 12:57 98 Room Air 11/28/23 11:41 97 11/28/23 10:50 95 11/28/23 10:49 95 Room Air 11/28/23 10:20 96 11/28/23 10:16 11/28/23 10:09 96 11/28/23 09:52 93 11/28/23 07:44 97 Room Air 11/28/23 03:26 97 Room Air 11/27/23 23:15 94 Room Air 11/27/23 22:48 11/27/23 19:43 99 Room Air 11/27/23 16:18 11/27/23 15:07 96 Room Air Transfer of Care Handoff Completed per policy Notes Mental Status: alert / awake / arousable Patient Amnestic to Procedure: Yes Nausea / Vomiting: adequately controlled Pain: adequately controlled Airway Patency, RR, SpO2: stable & adequate BP & HR: stable & adequate Hydration State: stable & adequate Anesthetic Complications: no major complications apparent
[2023-11-28] MEDS: PROPOFOL IV EMULSION 10 MG/ML 20 ML VIAL IV ONE (13:48)
[2023-11-29 06:17] LABS: Hematocrit (blood only) 28.6 % (42.0-52.0); Hemoglobin 9.5 g/dl (14.0-18.0); Mean Corpuscular Hemoglobin 29.4 pg (25.0-34.0); Mean Corpuscular Hgb Conc 33.2 g/dL (32.0-36.0); Mean Corpuscular Volume 88.5 fL (80.0-100.0); Mean Platelet Volume 10.7 fL (9.4-12.4); Platelet Count 139 K/uL (130-400); RDW Coefficient of Variation 14.1 % (11.5-14.5); RDW Standard Deviation 45.3 fL (36.4-46.3); Red Blood Count 3.23 M/uL (4.70-6.10); White Blood Count 6.54 K/ul (4.8-10.8)
[2023-11-29 06:32] LABS: BUN Creatinine Ratio 8.3 (10-20); Calcium 8.2 mg/dl (8.6-10.3); Est GFR (African American) 66.1 ml/min; Magnesium 1.8 mg/dl (1.7-2.4); Phosphorus 3.3 mg/dl (2.5-4.9); Potassium 3.7 mmol/L (3.5-5.1)
[2023-11-29] MEDS: PANTOprazole 40 MG TAB PO SCH (08:23)
--- NOTE | 2023-11-29 12:44 | Hospitalist Progress Note ---
Date of Service November 29, 2023 Assessment & Plan (1) GI bleed: Plan: Possible UGIB/LGIB combo history PUD/GERD Colitis on CT IV PPI for possible UGIB Stool workup, Suresh GI consult re: GI bleed - Mild thickening of the sigmoid wall seen on the CT scan. Clinically the patient does not have acute colitis. He has no fever, no leukocytosis and his abdominal examination is normal. I suggest to discontinue intravenous antibiotics. S/p colonoscopy on 11/28/2023 - Colonoscopy showed numerous diverticula throughout the colon. In the distal descending colon there was a small amount of red blood with minor oozing. Despite rinsing and suctioning I was unable to visualize the exact source of oozing. There was no major bleeding, no visible vessel. At this point I would recommend to observe the patient. Discontinue Plavix if okay with cardiology. In case of major rebleeding I would recommend consultation with interventional radiology. The patient will need to be transferred to another facility for that. 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 [place] - and ok to hold plavix , pt is also to follow up locally with [facility] cardiology as outpt Follow H&H - yesterday AM down to 8.9 - transfused 1 unit of pRBC on 11/28/2023, current Hgb 9.5 Chronic conditions: chronic diastolic heart failure (EF 60 to 65%, TTE 2023), patient euvolemic to dry hx aortic stenosis status post Ross AVR (07/2023, [place], [place]) hypertension, slight elevated pulmonary hypertension as per records history traumatic subdural hematoma meningioma status post surgery At risk alcohol intake , SERGIO S at risk protocol, DT precautions Hyperglycemia rule out DM, Check hemoglobin A1c past tobacco abuse DVT prophylaxis. SCDs Re: GI bleed Full code Admission and Anticipated Discharge Date Admission Date: November 27, 2023 Subjective Pt seen in follow up of GI bleed, acute blood loss anemia S/p colonoscopy yesterday No more BM since colonoscopy Denies any abd. 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 operator in [place] - and ok to hold plavix Review of Systems Review of Systems: All systems reviewed & are unremarkable except as noted in Subjective Physical Exam Physical Exam: GENERAL: WD/WN elderly M in NAD HEENT: NC/AT, Bespectacled, pale palpebral conjunctivae NECK : Supple, no tenderness CHEST : CTA, no tenderness HEART : RRR, systolic murmur ABDOMEN: Some distention, nontender EXTREMITIES : No LE swelling/tenderness, moves extremities NEUROLOGIC : awake, alert, oriented, speech fluent, answers appropriately, no facial asymmetry, moves extremities SKIN: Pallor, warm Results & Data Results & Data Vital Signs (Past 12 Hours) Vital Signs Temp Pulse Pulse Resp BP BP Pulse Ox 11/29/23 11:08 36.7 C 73 14 133/76 98 11/29/23 07:23 36.7 C 71 15 125/78 97 11/29/23 07:20 69 11/29/23 07:15 11/29/23 04:00 68 11/29/23 04:00 11/29/23 03:39 36.6 C 77 16 117/63 94 O2 Del Method 11/29/23 11:08 Room Air 11/29/23 07:23 Room Air 11/29/23 07:20 11/29/23 07:15 Room Air 11/29/23 04:00 11/29/23 04:00 Room Air 11/29/23 03:39 Room Air Laboratory Results 11/29/23 11/26/23 Range/Units 05:50 23:06 WBC 6.54 (4.8-10.8) K/ul RBC 3.23 L (4.70-6.10) M/uL Hgb 9.5 L (14.0-18.0) g/dl Hct 28.6 L (42.0-52.0) % MCV 88.5 (80.0-100.0) fL MCH 29.4 (25.0-34.0) pg MCHC 33.2 (32.0-36.0) g/dL RDW Std Deviation 45.3 (36.4-46.3) fL RDW Coeff of Mela 14.1 (11.5-14.5) % Plt Count 139 (130-400) K/uL MPV 10.7 (9.4-12.4) fL Sodium 139 (136-145) mmol/L Potassium 3.7 (3.5-5.1) mmol/L Chloride 108 H (98-107) mmol/L Carbon Dioxide 26 (21-32) mmol/L Anion Gap 5 (3-11) BUN 10 (6-23) mg/dl Creatinine 1.21 (0.6-1.4) mg/dl Est Cr Clr Drug Dosing 47.0 ml/min Est GFR ( Amer) 66.1 ml/min Est GFR (Non-Af Amer) 57.0 ml/min BUN/Creatinine Ratio 8.3 L (10-20) Glucose 105 H (70-99(Fasting)) mg/dl Calcium 8.2 L (8.6-10.3) mg/dl Phosphorus 3.3 (2.5-4.9) mg/dl Magnesium 1.8 (1.7-2.4) mg/dl Crossmatch See Detail Medications Administered Current Inpatient Medications Acetaminophen (Acetaminophen 325 Mg Tab) 650 mg PO QID PRN PRN Reason: pain/fever Stop: 12/27/23 00:40 Last Admin: 11/27/23 16:42 Dose: 650 mg Folic Acid (Folic Acid 1 Mg Tab) 1 mg PO [facility] Stop: 12/27/23 08:59 Last Admin: 11/29/23 08:23 Dose: 1 mg Promethazine HCl 6.25 mg/ (Sodium Chloride) 50.25 mls @ 201 mls/hr IV Q6H PRN PRN Reason: Nausea And Vomiting Stop: 12/27/23 00:40 Lorazepam 1 mg/ Syringe 1 mls @ 2 mls/min IV ONE PRN; Protocol PRN Reason: EtoH Withdrawal AWSS 6-10 Lisinopril (Lisinopril 40 Mg Tab) 40 mg PO [facility] Stop: 12/28/23 08:59 Last Admin: 11/29/23 08:23 Dose: 40 mg Lovastatin (Lovastatin 20 Mg Tab) [facility] Stop: 12/27/23 08:59 Last Admin: 11/29/23 08:23 Dose: 20 mg Multivitamins (Multivitamin Tab) 1 tab [facility] Stop: 12/27/23 08:59 Last Admin: 11/29/23 08:23 Dose: 1 tab Oxycodone HCl (Oxycodone Hcl Ir 5 Mg Tab (Immediate Release)) 5 mg PO Q4H PRN PRN Reason: Pain Stop: 12/11/23 00:40 Pantoprazole Sodium (Pantoprazole 40 Mg Tab) 40 mg PO [facility] Stop: 12/29/23 08:59 Last Admin: 11/29/23 08:23 Dose: 40 mg Thiamine HCl (Thiamine Hcl 100 Mg Tab) 100 mg PO [facility] Stop: 12/28/23 08:59 Last Admin: 11/29/23 08:22 Dose: 100 mg
[2023-11-29 19:52] LABS: Hemoglobin 10.2 g/dl (14.0-18.0)
[2023-11-30 07:00] LABS: Hematocrit (blood only) 31.5 % (42.0-52.0); Hemoglobin 10.5 g/dl (14.0-18.0); Mean Corpuscular Hemoglobin 29.7 pg (25.0-34.0); Mean Corpuscular Hgb Conc 33.3 g/dL (32.0-36.0); Mean Platelet Volume 10.9 fL (9.4-12.4); Platelet Count 147 K/uL (130-400); RDW Coefficient of Variation 14.4 % (11.5-14.5); RDW Standard Deviation 46.3 fL (36.4-46.3); Red Blood Count 3.54 M/uL (4.70-6.10); White Blood Count 6.79 K/ul (4.8-10.8)
[2023-11-30 07:22] LABS: BUN Creatinine Ratio 12.7 (10-20); Calcium 8.5 mg/dl (8.6-10.3); Creatinine Clr Calc Pharmacy 48.2 ml/min; Est GFR (African American) 68.1 ml/min; Est GFR (Non-African American) 58.8 ml/min; Magnesium 1.7 mg/dl (1.7-2.4); Phosphorus 3.3 mg/dl (2.5-4.9); Potassium 3.9 mmol/L (3.5-5.1)
[2023-11-30] MEDS: MAGNESIUM OXIDE 400 MG TAB PO SCH (09:31)
--- NOTE | 2023-11-30 09:59 | Discharge Summary ---
Date of Service November 30, 2023 Admission HPI Per Admitting Provider History obtained from patient and records. Medical history significant for chronic diastolic heart failure (EF 60 to 65%, TTE 2023), aortic stenosis status post Ross AVR (07/2023, [facility], [place], [place]), hypertension, pulmonary hypertension, history PUD/GERD, history traumatic subdural hematoma, meningioma status post surgery, urolithiasis, diverticulosis, rheumatoid arthritis, daily alcohol intake, past tobacco abuse. Last [facility] confinement 2021 for hydronephrosis/obstructive uropathy status post stent placement. Patient confined at [facility] in [place], [place] last September 2023 for GI bleed. Patient travels to [place] in his motor home during wintertime. EGD colonoscopy just showed diverticulosis as per patient. Patient antiplatelet Rx resumed. Yesterday morning, patient noted painless bloody diarrhea symptoms with note of melanotic stools later on as per patient. No fever, no chills. No chest pain, no SOB. Denies OTC NSAID intake. IV PPI administered at the ER. 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 Admission Exam Per Admitting Provider GENERAL: Comfortable, no respiratory distress SKIN: Pallor, warm HEENT: Bespectacled, pale palpebral conjunctivae, no ptosis, dry buccal mucosa NECK : Supple, no tenderness CHEST : CTA, no tenderness HEART : RRR, systolic murmur ABDOMEN: Some distention, nontender EXTREMITIES : No LE swelling/tenderness, no other conspicuous deformities noted NEUROLOGIC : Coherent, no facial asymmetry, no other gross focality Principal Diagnosis GI bleed -likely diverticular Acute blood loss anemia secondary to above Discharge Exam GENERAL: WD/WN elderly M in NAD HEENT: NC/AT, Bespectacled, pale palpebral conjunctivae NECK : Supple, no tenderness CHEST : CTA, no tenderness HEART : RRR, systolic murmur ABDOMEN: Some distention, nontender EXTREMITIES : No LE swelling/tenderness, moves extremities NEUROLOGIC : awake, alert, oriented, speech fluent, answers appropriately, no facial asymmetry, moves extremities SKIN: Pallor, warm Discharge Data Allergies Allergy/AdvReac Type Severity Reaction Status Date / Time No Known Allergies Allergy Verified 11/26/23 22:46 Consultations 11/26/23 23:55 ED Decision to Admit Stat 11/27/23 01:40 Consult Gastroenterology Routine Procedures Performed Operation Date: 11/28/23 17:25 Actual Procedures p Colonoscopy - Matthew Vega MD Ordered Studies 11/26/23 22:42 CT abd pelvis IV con only Stat FINDINGS: Lung bases: Mild fibrotic changes in the lung bases. No consolidation. ABDOMEN: Liver: Unremarkable. No mass. Gallbladder and bile ducts: Unremarkable. No calcified stones. No ductal dilation. Pancreas: Unremarkable. No mass. No ductal dilation. Spleen: Unremarkable. No splenomegaly. Adrenals: Unremarkable. No mass. Kidneys and ureters: There is a nonobstructive 6 mm calyceal calculus in the lower pole the left kidney. No hydronephrosis or ureterolithiasis is seen. Multiple cysts throughout both kidneys measuring up to 6.6 cm on the left is unchanged. No follow-up is required. Stomach and bowel: There is severe diverticulosis of the colon, greatest involving the left and sigmoid colon per no focal diverticulitis is seen. There is mild wall edema involving the sigmoid colon suggesting colitis. There is a small amount of fluid in the rectum. No pneumoperitoneum, free fluid, or abscess is seen. The appendix is normal. No obstruction. PELVIS: Appendix: See above. Bladder: Mild 6 mm urinary bladder wall thickening measuring 18 and completely distended status, less likely cystitis. Reproductive: Unremarkable as visualized. ABDOMEN and PELVIS: Intraperitoneal space: See above. Bones/joints: Metallic artifact over the pelvis from a right hip arthroplasty. No acute fracture or dislocation is seen. Moderate multilevel degenerative changes are seen throughout the spine. No acute fracture or subluxation. Soft tissues: Unremarkable. Vasculature: Previous transcatheter aortic valvuloplasty. The abdominal aorta is mildly calcified but nondilated. There is no aneurysm or dissection. Lymph nodes: Unremarkable. No enlarged lymph nodes. IMPRESSION: 1. There is severe diverticulosis of the colon, greatest involving the left and sigmoid colon. No focal diverticulitis is seen. There is mild wall edema involving the sigmoid colon suggesting colitis. There is a small amount of fluid in the rectum. No pneumoperitoneum, free fluid, or abscess is seen. The appendix is normal. 2. There is a nonobstructive 6 mm calyceal calculus in the lower pole the left kidney. No hydronephrosis or ureterolithiasis is seen. Hospital Course (1) GI bleed: Initially felt as Possible UGIB/LGIB combo history PUD/GERD Colitis on CT Pt underwent colonoscopy -> confirmed lower GI bleed IV PPI for possible UGIB Stool workup, Zosyn GI consult re: GI bleed - Mild thickening of the sigmoid wall seen on the CT scan. Clinically the patient does not have acute colitis. He has no fever, no leukocytosis and his abdominal examination is normal. I suggest to discontinue intravenous antibiotics. S/p colonoscopy on 11/28/2023 - Colonoscopy showed numerous diverticula throughout the colon. In the distal descending colon there was a small amount of red blood with minor oozing. Despite rinsing and suctioning I was unable to visualize the exact source of oozing. There was no major bleeding, no visible vessel. At this point I would recommend to observe the patient. Discontinue Plavix if okay with cardiology. In case of major rebleeding I would recommend consultation with interventional radiology. The patient will need to be transferred to another facility for that. 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 with his bogger operator in [place] - and ok to hold plavix , pt is also to follow up locally with [facility] cardiology as outpt Hgb down to 8.9 - transfused 1 unit of pRBC on 11/28/2023, next AM Hgb 9.5, current Hgb 10.5 (11/29) and pt had brown normal stool today Chronic conditions: chronic diastolic heart failure (EF 60 to 65%, TTE 2023), patient euvolemic to dry hx aortic stenosis status post Ross AVR (07/2023, [place], [place]) hypertension, slight elevated pulmonary hypertension as per records history traumatic subdural hematoma meningioma status post surgery At risk alcohol intake , SERGIO S at risk protocol, DT precautions Hyperglycemia rule out DM, Check hemoglobin A1c past tobacco abuse Total Time Total Time Spent Total Time Spent (In Minutes): 40 Discharge Plan Discharge Items Patient Disposition: Home - Self-Care Reason For Visit: ANEMIA, GI BLEED Discharge Diagnosis: GI bleed -likely diverticular Acute blood loss anemia secondary to above Activity: Per Instructions section Non-emergency contact: Primary Care Provider, Bleacher Operator and Skidder Operator Call non-emergency contact if: you have any medication questions and your symptoms worsen Follow-up/Referrals: Bennett De MD [Hospitalist] - (Date & Time 12/04/2023 9:30 AM Provider Vale Velazco DO Department Family Medicine [facility] ) Diet: Low Fiber Addtl Attending Provider Instructions: Follow up with your primary care doctor within 1 week. The appointment was scheduled for you for 12/04/2023. As discussed, stop taking plavix for now, and follow up with your bogger operator. Pending Studies at Discharge: No Stand-Alone Forms: My [facility] [address], Smoking Cessation Medications and DC Order Prescriptions: Continued lisinopril 40 mg Tablet 40 mg PO QAM lovastatin 20 mg Tablet Extended Release 24 Hr 20 mg PO QAM multivitamin Tablet 1 tab PO DAILY omega-3 fatty acids 1,000 mg Capsule 1,000 mg PO DAILY sucralfate 1 gram tablet 1 g PO QID PRN (Reason: HEARTBURN/INDIGESTION) aspirin 81 mg Tablet,Delayed Release (Dr/Ec) 81 mg PO DAILY Rx Instructions: PER PT "DID NOT TAKE TODAY, 11/26/23, SINCE BLEEDING". pantoprazole 40 mg tablet,delayed release (DR/EC) 40 mg PO QAM Discontinued clopidogrel 75 mg tablet 75 mg PO QAM Discharge Orders: Discharge Order (Routine); Ordered 11/30/23 Ordered By: Rodger De La Fuente Admission Data Admit Date/Time: 11/27/23 00:40 Attending Provider: Rodger De La Fuente Admit Provider: Joey Akins Primary Care Provider: Steve Meade Other Providers: Joey Akins; Renan Mcgowan
== END 2023-11-30 11:15 | disposition home or self-care (01) | DRG 378 ==
LOC: ED 22:16 → EDINP 11-27 00:40 → 2N 11-27 01:40